=== PATIENT | female | born 1955 | race African-American/Black ===

== ENCOUNTER 2018-03-20 10:29 | Emergency (ER) | payer MEDICARE, MEDICAID ==
[~2018-03-20] VITALS: Ht 170.2 cm; Wt 54.4 kg
--- NOTE | 2018-03-20 10:40 | NUR ---
ED Nurse Note: Patient walked in c/o lower back pain x 2 weeks after lifting and twisting heavy object. Pt rates pain at 10/10. Pt is also taking Flexeril for the same complaint. Pt is A&O x4, V/S noted. Will continue to monitor the pt.
[2018-03-20 10:46] VITALS: BP 161/95
[2018-03-20] MEDS ORDERED: Ketorolac 60mg Inj IM ONE (11:00)
[2018-03-20] MEDS ORDERED: ROBAXIN-750750 MG PO (11:02)
[2018-03-20] MEDS ORDERED: TYLENOL325 MG ORAL (11:02)
--- NOTE | 2018-03-20 11:24 | NUR ---
ED Nurse Note: pt was cleared for discharge by sachin. prescription and discharge instruction explained. pt is aox 4, pt able to verbalize understanding. id band removed. pt able to walk with steady gait. pt left with all belongings.
--- NOTE | 2018-03-20 14:01 | Emergency Room Report ---
History of Present Illness General Chief Complaint: Lower Back Pain or Injury Source: Patient, Medical Record Present Illness HPI Patient reports that last week She had been lifting something cannot recall exactly what it was at that point started having some discomfort to her lower back Patient reports some discomfort into the bilateral buttock region as well patient is wearing a brace and reports that this does help her Denies any chest pain denies any loss of control of bowel or urination denies any saddle paresthesia denies any fall or trauma Patient reports that she was taking Flexeril Initially reports that the medication was given to her by her physician this last week however then reports that She was not able to see her primary physician as he was out of town the medication bottle shows Prescription initially filled in August Allergies: Coded Allergies: No Known Allergies (Unverified , 03/20/18) Patient History Past Medical History: see triage record Pertinent Family History: none Now: No : 2 Para: 1 Reviewed Nursing Documentation: PMH: Agreed; PSxH: Agreed Nursing Documentation-PMH History Of Psychiatric Problem: Yes - Anxiety Review of Systems All Other Systems: negative except mentioned in HPI Physical Exam Vital Signs Date Time Temp Pulse Resp B/P (MAP) Pulse Ox O2 Delivery O2 Flow Rate FiO2 03/20/18 10:40 97.9 77 18 161/95 95 Room Air Sp02 EP Interpretation: reviewed, normal General Appearance: well appearing, no apparent distress Head: normocephalic, atraumatic Eyes: bilateral eye PERRL, bilateral eye EOMI ENT: hearing grossly normal, normal pharynx, TMs + canals normal, uvula midline Neck: full range of motion, supple, no meningismus, no bony tend Respiratory: lungs clear, normal breath sounds, no rhonchi, no respiratory distress, no retraction, no accessory muscle use Cardiovascular #1: normal peripheral pulses, regular rate, rhythm, no edema, no gallop, no JVD, no murmur Gastrointestinal: normal bowel sounds, non tender, soft, no mass, no organomegaly, non-distended, no guarding, no hernia, no pulsatile mass, no rebound Genitourinary: no CVA tenderness Musculoskeletal: normal inspection - Patient has a cane however stands and ambulates without the cane without focal deficit had some mild discomfort on palpation paraspinal L4-L5 region no obvious step-off Neurologic: oriented x3, responsive, 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, motor strength/ tone normal, sensory intact Psychiatric: mood/affect normal Skin: normal color, no rash, warm/dry, palpation normal Lymphatic: normal inspection, no adenopathy Medical Decision Making Diagnostic Impression: Primary Impression: back pain ER Course Patient's history and clinical exam is consistent with likely back sprain/ strain other pathology such as disc herniation cannot be fully ruled out Patient however does not show clinical signs of neurological /Neurosurgical emergent pathology it was discussed that MRI via Outpatient referral will be the best approach and the patient was dispositioned for close outpatient follow-up Last Vital Signs Date Time Temp Pulse Resp B/P (MAP) Pulse Ox O2 Delivery O2 Flow Rate FiO2 03/20/18 11:22 97.9 80 18 161/90 95 Room Air 71 Status: improved Disposition: HOME, SELF-CARE Condition: Stable Scripts Methocarbamol* (ROBAXIN-750*) 750 Mg Tablet 750 MG PO TID, #21 TAB 0 Refills Prov: Néstor Andres DO 03/20/18 Acetaminophen (Tylenol) 325 Mg Tablet 650 MG ORAL Q8HR PRN for Prn Pain/Headache/Temp > 101, #15 TAB 0 Refills Prov: Néstor Andres DO 03/20/18 Referrals: NON PHYSICIAN (PCP) Kimani Malone [facility] Patient Instructions: Lumbosacral Strain Additional Instructions: Patient is provided with the discharge instructions notified to follow up with primary doctor in the next 2-3 days otherwise return to the er with any worsening symptoms. Please note that this report is being documented using Summize technology. This can lead to erroneous entry secondary to incorrect interpretation by the dictating instrument. Néstor Andres DO Mar 20, 2018 14:01
== END 2018-03-20 11:30 | disposition home or self-care (01) ==
LOC: EMR 11:02
DX: M54.5 Low back pain (principal); F41.9 Anxiety disorder, unspecified
CPT/HCPCS: 96372; 99283

== ENCOUNTER 2018-06-08 14:40 | Inpatient (IN) | payer MEDICARE, MEDICAID ==
[~2018-06-08] VITALS: Ht 170.2 cm; Wt 54.4 kg
[~2018-06-08 14:40] MED LIST: ROBAXIN-750750 MG PO; TYLENOL325 MG ORAL
[2018-06-08] MEDS ORDERED: Ketorolac 30mg Inj IM ONE (15:00)
[2018-06-08] MEDS ORDERED: Methocarbamol 750mg tab ORAL ONE (15:00)
--- NOTE | 2018-06-08 15:35 | NUR ---
ED Nurse Note: Patient resting in bed. No facial grimacing or guarding noted. Bed in lowest position.
[2018-06-08 16:01] VITALS: BP 149/83
--- NOTE | 2018-06-08 16:21 | Diagnostic Imaging Report ---
Indication: Pain x1 month, status post trip and fall Technique: Noncontrast spiral acquisitions obtained through the pelvis. Multiplanar reconstructions generated. Total dose length product 618.69 mGycm. CTDIvol(s) 10.03,8.67 mGy. Dose reduction achieved using automated exposure control Comparison: none Findings: Multiple vertebral body compression fracture deformities are discussed in separate lumbar spine CT report. The bones appear to be profoundly osteoporotic. Multiple areas of lucency are seen throughout the bilateral iliac bones and sacrum. It is unclear whether these represent areas of more profound osteoporosis or whether these represent osteolytic lesions, although are somewhat suspicious for the latter. These are particularly notable in the left supra-acetabular region and left anterior iliac bone. Small focal lucencies are also seen in the bilateral femoral heads. There is a nondisplaced fracture of the anterior left iliac bone. This appears to be associated with the largest area of lucency. No other definite fractures are demonstrated. There are mild degenerative changes of the hip joints bilaterally, mostly proliferative in nature. There are also degenerative changes of the bilateral sacroiliac joints. Soft tissues appear diffusely edematous. There is mild distention of the rectum by feces. The bladder is distended Impression: Positive for unusual nondisplaced left anterior iliac bone fracture. Profound bony demineralization. More focal lucencies as well as generalized heterogeneity to the bones could be just related to osteoporotic change, but raise concern for systemic pathologic process, either metabolic or neoplastic. Correlate with clinical history and findings. Degenerative changes, as described Diffuse edema of the soft tissues Mild distention of the rectum by feces, could indicate mild rectal fecal impaction. Distended bladder The CT scanner at [facility] is accredited by the [employer] and the scans are performed using protocols designed to limit radiation exposure to as low as reasonably achievable to attain images of sufficient resolution adequate for diagnostic evaluation.
--- NOTE | 2018-06-08 16:30 | Diagnostic Imaging Report ---
Indications: Back pain for one month, history of trip and fall Technique: Spiral acquisitions obtained through the lumbar spine. Multiplanar reconstructions were generated. No IV contrast utilized. Total dose length product 618.69 mGycm. CTDIvol(s) 10.03,8.67 mGy. Dose reduction achieved using automated exposure control Comparison: none Findings: There is a vertebra plana type burst/compression fracture deformity of the L5 vertebral body, slight posterior retropulsion, with approximately 60% height loss anteriorly and 80% height loss centrally. There is a wedge/vertebra plana compression fracture deformity of the L4 vertebral body, without evidence of posterior retropulsion. This results in approximately 50% loss anteriorly. There is an anterior wedge compression fracture deformity of the L3 vertebral body, with associated height loss of the central endplate, approximately 50% height loss anteriorly. There is slight retropulsion of the superior posterior wall. There is a mild anterior wedge compression fracture deformity of the L1 vertebral body. The remaining vertebral bodies demonstrate so-called fish deformity, with marked inward bowing of the inferior and superior endplates. The bones are profoundly osteoporotic. No other acute fractures are demonstrated. At L2-3, there is mild circumferential annular bulge. The disc bulge as well as the posterior superior wall L3 retropulsion results in mild narrowing of the spinal canal. The neural foramina are preserved. The disc space is preserved. At L3-4, there is mild circumferential annular bulge. This, in combination with ligamentum flavum hypertrophy and facet hypertrophy, results in borderline narrowing of the spinal canal. No significant neural foraminal stenosis is demonstrated. The disc space is preserved. At L4-5, there is vacuum disc formation but no significant loss of disc space. There is circumferential annular bulge. This results in borderline narrowing of the spinal canal. The neural foramina are preserved bilaterally. At L5-S1, there is vacuum disc formation without significant loss of disc space. No significant disc bulge or protrusion. There is borderline narrowing of the left neural foramen The included extra spinal soft tissues are remarkable for the presence of consolidation or atelectasis at the right lung base and a pleural effusion at the left lung base. Impression: Multiple vertebral compression fracture deformities. Age of these is indeterminate. Consider MRI to better characterize if clinically indicated No other acute bony trauma demonstrated Multilevel degenerative changes, as detailed on a level by level basis above Profound osteoporosis. Right lower lobe pulmonary parenchymal consolidation or atelectasis. Correlate with clinical history and findings Small left pleural effusion The CT scanner at [facility] is accredited by the [employer] and the scans are performed using protocols designed to limit radiation exposure to as low as reasonably achievable to attain images of sufficient resolution adequate for diagnostic evaluation.
[2018-06-08] MEDS ORDERED: IBUPROFEN600 MG ORAL (17:56)
[2018-06-08] MEDS ORDERED: ALPRAZOLAM1 MG ORAL (17:56)
--- NOTE | 2018-06-08 18:07 | NUR ---
ED Nurse Note:blood sent to labs, given iv meds
[2018-06-08] MEDS: LORazepam Inj 2mg/ml 1ml IV ONE ×2 (18:08→18:12)
[2018-06-08 18:11] LABS: BASOPHILS % (AUTO) 1.2 % (0.0-2.0); HEMATOCRIT 29.6 % (37.0-47.0); HEMOGLOBIN 9.6 G/DL (12.0-16.0); LYMPHOCYTES % (AUTO) 38.6 % (20.0-45.0); MEAN CORPUSCULAR VOLUME 96 FL (80-99); MONOCYTES % (AUTO) 7.1 % (1.0-10.0); NEUTROPHILS % (AUTO) 50.2 % (45.0-75.0); PLATELET COUNT 198 K/UL (150-450); RED BLOOD COUNT 3.07 M/UL (4.20-5.40); WHITE BLOOD COUNT 5.5 K/UL (4.8-10.8)
[2018-06-08 18:15] VITALS: BP 146/70
--- NOTE | 2018-06-08 18:18 | NUR ---
ED Nurse Note:pt. refused IV ativan
[2018-06-08 18:22] LABS: INR 1.1 (0.9-1.1)
[2018-06-08 18:36] LABS: ANION GAP 9 mmol/L (5-15); BLOOD UREA NITROGEN 12 mg/dL (7-18); CALCIUM 9.2 MG/DL (8.5-10.1); CARBON DIOXIDE 31 MMOL/L (21-32); CHLORIDE 100 MMOL/L (98-107); POTASSIUM 3.6 MMOL/L (3.5-5.1); SODIUM 140 MMOL/L (136-145)
[2018-06-08 18:41] LABS: ALANINE AMINOTRANSFERASE 17 U/L (12-78); ALBUMIN 2.4 G/DL (3.4-5.0); ALBUMIN/GLOBULIN RATIO 0.3 (1.0-2.7); ALKALINE PHOSPHATASE 84 U/L (46-116); ASPARTATE AMINO TRANSFERASE 21 U/L (15-37); BILIRUBIN,TOTAL 0.2 MG/DL (0.2-1.0)
--- NOTE | 2018-06-08 19:08 | Emergency Room Report ---
History of Present Illness General Chief Complaint: Lower Back Pain or Injury Source: Patient (Essie Post) Present Illness HPI 63-year-old female presents to the emergency department complaining of 10 out of 10 in severity low back pain as well as right upper hip pain. Patient reports mechanical trip and fall approximately one month ago. Patient denies hitting her head or having loss of consciousness. Denies midline neck pain. She states that she has been ambulatory the whole time however her symptoms have been progressive she reports that her pain is exacerbated upon walking and standing. Denies urinary incontinence or urinary retention. Denies paresthesias of the lower extremities or saddle anesthesia. Denies fevers, chills, recent spinal procedures or hx of cancer. She denies significant Pmhx. other than depression for which she reports taking xanax BID for. (Essie Post) Allergies: Coded Allergies: No Known Allergies (Unverified , 03/20/18) Patient History Past Medical History: see triage record Past Surgical History: none Pertinent Family History: none Now: No Reviewed Nursing Documentation: PMH: Agreed; PSxH: Agreed (Essie Post) Nursing Documentation-PMH Past Medical History: No History, Except For (Essie Post) Review of Systems All Other Systems: negative except mentioned in HPI (Essie Post) Physical Exam Vital Signs Date Time Temp Pulse Resp B/P (MAP) Pulse Ox O2 Delivery O2 Flow Rate FiO2 06/08/18 14:35 98.2 69 18 149/83 98 Room Air Sp02 EP Interpretation: reviewed, normal General Appearance: alert, GCS 15, non-toxic, mild distress Head: normocephalic, atraumatic Eyes: bilateral eye normal inspection, bilateral eye PERRL ENT: hearing grossly normal, normal voice Neck: full range of motion, no bony tend Respiratory: lungs clear, normal breath sounds, speaking full sentences Cardiovascular #1: regular rate, rhythm, no edema, normal capillary refill Cardiovascular #2: 2+ dorsalis pedis (R) - posterior tibial, 2+ dorsalis pedis (L) - posterior tibial Genitourinary: normal inspection, no CVA tenderness Musculoskeletal: back normal, gait/station normal - compensatory , normal range of motion, other - pt. has clinically observed kyphosis, tender - TTP across lumbar area both paraspinal and midline spinal ttp, no obvious step-offs Neurologic: alert, oriented x3, responsive, motor strength/tone normal, sensory intact, normal gait, speech normal, grossly normal Psychiatric: judgement/insight normal Skin: normal color, no rash, warm/dry, well hydrated (Essie Post) Medical Decision Making PA Attestation Dr. Andres is my supervising Physician whom patient management has been discussed with. (Essie Post) Medicare Attestation I do agree with the exam and findings noted Patient's CT and imaging also reviewed Patient requires further inpatient care, ortho has been consulted as well And patient will have further inpatient care (Néstor Andres DO) Diagnostic Impression: Primary Impression: Closed pelvic fracture Qualified Codes: S32.9XXA - Fracture of unspecified parts of lumbosacral spine and pelvis, initial encounter for closed fracture Additional Impression: Compression fx, lumbar spine Qualified Codes: S32.030A - Wedge compression fracture of third lumbar vertebra, initial encounter for closed fracture ER Course 63-year-old female presents to the emergency department complaining of 10 out of 10 in severity low back pain as well as right upper hip pain. Patient reports mechanical trip and fall approximately one month ago. Patient denies hitting her head or having loss of consciousness. Denies midline neck pain. She states that she has been ambulatory the whole time however her symptoms have been progressive she reports that her pain is exacerbated upon walking and standing. Denies urinary incontinence or urinary retention. Denies paresthesias of the lower extremities or saddle anesthesia. Denies fevers, chills, recent spinal procedures or hx of cancer. She denies significant Pmhx. other than depression for which she reports taking xanax BID for. Ddx considered: epidural abscess, fracture, sprain/strain, meningitis, spinal chord injury, sciatica, cauda equina, Pyelonephritis, renal calculi just to name a few. Vital signs reviewed and are WNL during ED visit. Pt. is afebrile with no signs of infection No saddle anesthesia noted, Pt. denies incontinence Neurovascular is intact *Tenderness to palpation to paraspinal muscles of the lower back with midline tenderness. and posterior pelvis TTP right >left. *Pt. describes pain today as moderate and radiates across the lower back and down the right leg. ORDERS: -CBC: anemia -CMP: Unremarkable -CT L-spine and Pelvis no contrast. INTERVENTIONS: - 20mg IM Toradol -Tramadol PO -Xanax 1mg IV DISPOSITION: at this time pt. will be admitted to Dr. Mcguire for multiple compression fractures on indeterminant age, and acute non-displaced anterior iliac spine fx of the left side of the pelvis. Dr. Tejada agreed to admit the pt. and to continue pt. care management. Labs Test 06/08/18 18:00 White Blood Count 5.5 K/UL (4.8-10.8) Red Blood Count 3.07 M/UL (4.20-5.40) Hemoglobin 9.6 G/DL (12.0-16.0) Hematocrit 29.6 % (37.0-47.0) Mean Corpuscular Volume 96 FL (80-99) Mean Corpuscular Hemoglobin 31.1 PG (27.0-31.0) Mean Corpuscular Hemoglobin Concent 32.3 G/DL (32.0-36.0) Red Cell Distribution Width 15.0 % (11.6-14.8) Platelet Count 198 K/UL (150-450) Mean Platelet Volume 5.8 FL (6.5-10.1) Neutrophils (%) (Auto) 50.2 % (45.0-75.0) Lymphocytes (%) (Auto) 38.6 % (20.0-45.0) Monocytes (%) (Auto) 7.1 % (1.0-10.0) Eosinophils (%) (Auto) 3.0 % (0.0-3.0) Basophils (%) (Auto) 1.2 % (0.0-2.0) Prothrombin Time 11.1 SEC (9.30-11.50) Prothromb Time International Ratio 1.1 (0.9-1.1) Activated Partial Thromboplast Time 43 SEC (23-33) Sodium Level 140 MMOL/L (136-145) Potassium Level 3.6 MMOL/L (3.5-5.1) Chloride Level 100 MMOL/L (98-107) Carbon Dioxide Level 31 MMOL/L (21-32) Anion Gap 9 mmol/L (5-15) Blood Urea Nitrogen 12 mg/dL (7-18) Creatinine 1.0 MG/DL (0.55-1.30) Estimat Glomerular Filtration Rate > 60 mL/min (>60) Glucose Level 98 MG/DL (74-106) Calcium Level 9.2 MG/DL (8.5-10.1) Total Bilirubin 0.2 MG/DL (0.2-1.0) Aspartate Amino Transf (AST/SGOT) 21 U/L (15-37) Alanine Aminotransferase (ALT/SGPT) 17 U/L (12-78) Alkaline Phosphatase 84 U/L (46-116) Total Protein 10.2 G/DL (6.4-8.2) Albumin 2.4 G/DL (3.4-5.0) Globulin 7.8 g/dL Albumin/Globulin Ratio 0.3 (1.0-2.7) (Essie Post) CT/MRI/US Diagnostic Results CT/MRI/US Diagnostic Results : Imaging Test Ordered: CT L-Spine and Pelvis Impression "Lumbar compression fractures most notably burst compression fracture of L5, anterior wedge compression fracture fracture of L3 and mild anterior wedge compression fracture of L1. Pelvic imaging was notable for an unusual fracture of the left anterior iliac spine." ---Per official radiology report- Please see report for specific details. (Essie Post) Last Vital Signs Date Time Temp Pulse Resp B/P (MAP) Pulse Ox O2 Delivery O2 Flow Rate FiO2 06/08/18 18:15 98.3 68 16 146/70 94 Room Air Status: improved (Essie Post) Disposition: ADMITTED INPATIENT Condition: Serious Referrals: NON PHYSICIAN (PCP) Essie Post Jun 08, 2018 19:08 Néstor Andres DO Jun 08, 2018 19:31
--- NOTE | 2018-06-08 19:30 | NUR ---
ED Nurse Note: RECIEVED REPORT TO RESUME CARE, PT IN BED WAITING TO GO TO FLOOR UNIT FOR ADMISSION, PT IS AWAKE, ALERT AND ORIENTED X 4, IV SITE PATENT, PT REMAINS WITH BACK PAIN AT 09/08, MD INFORMED, WILL RESUME CARE, CALL REPORT AND SEND TO FLOOR BED FOR PT ADMISSION.
--- NOTE | 2018-06-08 20:20 | NUR ---
ED Nurse Note: REPORT FLEX TO JEREMYRN ON FLOOR UNIT FOR PT ADMIT, PT BEING TAKEN TO FLOOR BED VIA GURNEY AND ER-TECH, PT HAS ALL BELONGINGS, SALINE LCOK INTACT AND PATENT, NAD NOTED DURING PT TRANSFER TO [facility] FOR ADMISSION.
[2018-06-08] MEDS ORDERED: Gadavist 7.5mMol/7.5ml vial IV PRN (20:30)
[2018-06-08] MEDS: HYDROcodone/Acetamin 5/325 tab ORAL PRN (22:18)
--- NOTE | 2018-06-08 22:45 | NUR ---
NURSE NOTES: RECEIVED PT FROM ED VIA GURELIE, ADM DX OF MULTIPLE COMPRESSION FX AND PELVIC FX, UNDER DR CARTER. REPORT RECEIVED FROM BACTERIOLOGIST FOOD JENY. A/O X 4, RA, NO SOB, NO ACUTE DISTRESS. LAC 20G SALINE LOCK INTACT, PATENT. BELONGINGS CHECKED, ORIENTED PT TO SURROUNDINGS. BED IN LOWEST POSITION, LOCKED, ALARMS ON. CALL LIGHT IN REACH. WILL RECEIVED ADM ORDERS FROM DR CARTER.
[2018-06-09] VITALS: BP 144/72
--- NOTE | 2018-06-09 02:15 | Consultation ---
DATE OF CONSULTATION: 06/08/2018 ORTHOPEDIC CONSULTATION CONSULTING PHYSICIAN: Scout Kwok M.D. REQUESTING PHYSICIAN: Néstor Marrero M.D. CHIEF COMPLAINT: Left hip pain and low back pain. HISTORY OF PRESENT ILLNESS: The patient is a 63-year-old female with no reported medical history who was lifting a plant and she kind of felt popping and cracking sensation in the lower back. She subsequently had significant pain in her left hip radiating down to left thigh, subsequently was brought to the ER. Imaging studies, which showed possible multiple compression fractures as well as fractures along the left iliac wing. The patient denies any constitutional symptoms. No fevers or weight loss. No history of any cancer. PAST MEDICAL HISTORY: Reviewed per intake chart. PAST SURGICAL HISTORY: Reviewed per intake chart. MEDICATIONS: Reviewed per intake chart. PHYSICAL EXAMINATION: GENERAL: The patient is alert and oriented. He is resting comfortably on the bed. VITAL SIGNS: Afebrile. Stable vital signs. EXTREMITIES: Left hip examination shows some pain along the iliac crest. No pain with log rolling of the left hip. Neurovascular exam is normal. There is some tenderness to palpation of the lumbar spine. LABORATORY AND DIAGNOSTIC DATA: CT scan lumbar spine shows multilevel vertebral body fractures, no significant disc desiccation, L4-L5 and L5-S1. CT scan of the pelvis shows a fracture through the left iliac crest. ASSESSMENT: Multilevel lumbar compression fractures left iliac crest DISCUSSION: At this point, clearly she needs workup. She has got a lucency on the right iliac wing as well. I think that she needs appropriate workup for possible multiple myeloma, possible metastatic cancer. I recommend getting an MRI of the lumbar spine to better evaluate the chronicity of the lumbar spine issues. Based on the MRI findings, further recommendations can be made. In terms left pelvic ring fracture, this is a stable injures to iliac wing. She can be weightbearing as tolerated. I recommend maintaining sometime DVT prophylaxis until we can confirm that she does not have some type of underlying metastatic issues. Scout Kwok M.D. DR: Matty JOB#: [id number] CC: Néstor Marrero M.D.; Fax#: [phone] [facility]
[2018-06-09 04:00] VITALS: BP 147/76
[2018-06-09] MEDS: HYDROcodone/Acetamin 5/325 tab ORAL PRN ×3 (04:52→16:07)
[2018-06-09 05:38] LABS: HEMATOCRIT 24.3 % (37.0-47.0); HEMOGLOBIN 7.9 G/DL (12.0-16.0); MEAN CORPUSCULAR VOLUME 97 FL (80-99); PLATELET COUNT 200 K/UL (150-450); RED CELL DISTRIBUTION WIDTH 15.4 % (11.6-14.8); WHITE BLOOD COUNT 4.1 K/UL (4.8-10.8)
--- NOTE | 2018-06-09 06:09 | NUR ---
NURSE NOTES: PT NOTED WITH HGB 7.9 AND WBC 4.1, LEFT MSG TO DR CARTER.
--- NOTE | 2018-06-09 06:30 | NUR ---
NURSE NOTES: PT NOTED WITH LOW SATS AT 85% RA, DENIES SOB, ASYMPTOMATIC. INFORMED DR CARTER, RECEIVED ORDER FOR OS 2L VIZ N/C. CARRIED OUT. SATS NOTED 96% WITH 2L O2.
--- NOTE | 2018-06-09 06:35 | NUR ---
NURSE NOTES: RECEIVED ORDER TO TRANSFUSE 1PRBC FROM DR LOYOLA. CARRIED OUT.
[2018-06-09 06:40] LABS: ALANINE AMINOTRANSFERASE 17 U/L (12-78); ALBUMIN 2.2 G/DL (3.4-5.0); ALBUMIN/GLOBULIN RATIO 0.3 (1.0-2.7); ALKALINE PHOSPHATASE 75 U/L (46-116); ANION GAP 9 mmol/L (5-15); ASPARTATE AMINO TRANSFERASE 22 U/L (15-37); BILIRUBIN,TOTAL 0.2 MG/DL (0.2-1.0); BLOOD UREA NITROGEN 15 mg/dL (7-18); CALCIUM 8.6 MG/DL (8.5-10.1); CARBON DIOXIDE 29 MMOL/L (21-32); CHLORIDE 101 MMOL/L (98-107); CREATININE 0.9 MG/DL (0.55-1.30); POTASSIUM 3.7 MMOL/L (3.5-5.1); SODIUM 139 MMOL/L (136-145)
--- NOTE | 2018-06-09 06:56 | NUR ---
NURSE NOTES: LEFT MSG TO DR MAZA REGARDING SATS.
--- NOTE | 2018-06-09 07:15 | NUR ---
NURSE NOTES: Patient is in bed awake and able to verbalize needs. Patient is stable and denies pain or SOB. Patient encouraged to use call light for assistance, verbalized understanding. On oxygen 2L via NC, breathing is even and unlabored. Skin is clean, dry, and intact. Patient is in good spirits with call light within reach. All safety measures provided. Will continue to monitor.
--- NOTE | 2018-06-09 07:40 | NUR ---
HAND-OFF: Report given to Kimberly DILL.
[2018-06-09 08:00] VITALS: BP 154/84
--- NOTE | 2018-06-09 08:11 | NUR ---
NURSE NOTES: Spoke to blood bank, type and cross is in process. Will continue to monitor.
--- NOTE | 2018-06-09 08:59 | Consultation ---
History of Present Illness General Date patient seen: Jun 09, 2018 Present Illness Allergies: Coded Allergies: No Known Allergies (Unverified , 03/20/18) Medication History Scheduled Alprazolam* (Xanax*), 1 MG ORAL BID, (Reported) Methocarbamol* (Robaxin-750*), 750 MG PO TID Miscellaneous Medications Ibuprofen* (Motrin*), Unknown Dose ORAL, (Reported) Discontinued Medications Acetaminophen (Tylenol), 650 MG ORAL Q8HR PRN for Prn Pain/Headache/Temp > 101 Discontinued Reason: Therapy completed Patient History Healthcare decision maker Resuscitation status Full Code Advanced Directive on File Physical Exam Last 24 Hour Vital Signs Date Time Temp Pulse Resp B/P (MAP) Pulse Ox O2 Delivery O2 Flow Rate FiO2 06/09/18 08:24 Nasal Cannula 2.0 06/09/18 08:00 98.2 61 19 154/84 (107) 99 06/09/18 04:00 97.5 60 18 147/76 (99) 99 06/09/18 00:00 97.2 67 18 144/72 (96) 94 06/08/18 22:00 Room Air 06/08/18 20:21 98.3 68 16 146/70 94 Room Air 06/08/18 18:15 98.3 68 16 146/70 94 Room Air 06/08/18 16:01 98.2 79 18 149/83 98 Room Air 06/08/18 15:35 98.2 06/08/18 14:35 98.2 69 18 149/83 98 Room Air Intake and Output 06/08/18 06/09/18 19:00 07:00 Intake Total 120 ml 440 ml Balance 120 ml 440 ml Intake Oral 120 ml IV Total 440 ml Laboratory Tests Test 06/08/18 18:00 06/09/18 04:59 White Blood Count 5.5 K/UL (4.8-10.8) 4.1 K/UL (4.8-10.8) L Red Blood Count 3.07 M/UL (4.20-5.40) L 2.50 M/UL (4.20-5.40) L Hemoglobin 9.6 G/DL (12.0-16.0) L 7.9 G/DL (12.0-16.0) L Hematocrit 29.6 % (37.0-47.0) L 24.3 % (37.0-47.0) L Mean Corpuscular Volume 96 FL (80-99) 97 FL (80-99) Mean Corpuscular Hemoglobin 31.1 PG (27.0-31.0) H 31.6 PG (27.0-31.0) H Mean Corpuscular Hemoglobin Concent 32.3 G/DL (32.0-36.0) 32.6 G/DL (32.0-36.0) Red Cell Distribution Width 15.0 % (11.6-14.8) H 15.4 % (11.6-14.8) H Platelet Count 198 K/UL (150-450) 200 K/UL (150-450) Mean Platelet Volume 5.8 FL (6.5-10.1) L 6.6 FL (6.5-10.1) Neutrophils (%) (Auto) 50.2 % (45.0-75.0) % (45.0-75.0) Lymphocytes (%) (Auto) 38.6 % (20.0-45.0) % (20.0-45.0) Monocytes (%) (Auto) 7.1 % (1.0-10.0) % (1.0-10.0) Eosinophils (%) (Auto) 3.0 % (0.0-3.0) % (0.0-3.0) Basophils (%) (Auto) 1.2 % (0.0-2.0) % (0.0-2.0) Prothrombin Time 11.1 SEC (9.30-11.50) Prothromb Time International Ratio 1.1 (0.9-1.1) Activated Partial Thromboplast Time 43 SEC (23-33) H Sodium Level 140 MMOL/L (136-145) 139 MMOL/L (136-145) Potassium Level 3.6 MMOL/L (3.5-5.1) 3.7 MMOL/L (3.5-5.1) Chloride Level 100 MMOL/L (98-107) 101 MMOL/L (98-107) Carbon Dioxide Level 31 MMOL/L (21-32) 29 MMOL/L (21-32) Anion Gap 9 mmol/L (5-15) 9 mmol/L (5-15) Blood Urea Nitrogen 12 mg/dL (7-18) 15 mg/dL (7-18) Creatinine 1.0 MG/DL (0.55-1.30) 0.9 MG/DL (0.55-1.30) Estimat Glomerular Filtration Rate > 60 mL/min (>60) > 60 mL/min (>60) Glucose Level 98 MG/DL (74-106) 77 MG/DL (74-106) Calcium Level 9.2 MG/DL (8.5-10.1) 8.6 MG/DL (8.5-10.1) Total Bilirubin 0.2 MG/DL (0.2-1.0) 0.2 MG/DL (0.2-1.0) Aspartate Amino Transf (AST/SGOT) 21 U/L (15-37) 22 U/L (15-37) Alanine Aminotransferase (ALT/SGPT) 17 U/L (12-78) 17 U/L (12-78) Alkaline Phosphatase 84 U/L (46-116) 75 U/L (46-116) Total Protein 10.2 G/DL (6.4-8.2) H 9.4 G/DL (6.4-8.2) H Albumin 2.4 G/DL (3.4-5.0) L 2.2 G/DL (3.4-5.0) L Globulin 7.8 g/dL 7.2 g/dL Albumin/Globulin Ratio 0.3 (1.0-2.7) L 0.3 (1.0-2.7) L Differential Total Cells Counted 100 Neutrophils % (Manual) 45 % (45-75) Lymphocytes % (Manual) 42 % (20-45) Monocytes % (Manual) 10 % (1-10) Eosinophils % (Manual) 3 % (0-3) Basophils % (Manual) 0 % (0-2) Band Neutrophils 0 % (0-8) Platelet Estimate Adequate Platelet Morphology Normal Anisocytosis 1+ Total Protein (PEP) Pending Albumin (PEP) Pending Globulin (PEP) Pending Ondjf-3-Pyphmbkxf Pending Njmzw-5-Umdlmchwz Pending Beta Globulins Pending Beta Gamma Globulin Pending PEP Abnormal Protein Bands Pending Protein Electrophoresis Interpret Pending Carcinoembryonic Antigen Pending CA 15-3 Antigen Pending CA 19-9 Antigen Pending CA 125 Antigen Pending Immunoglobulin G Pending Immunoglobulin A Pending Immunoglobulin M Pending Height (Feet): 5 Height (Inches): 7.00 Weight (Pounds): 120 Medications Current Medications Medications (Trade) Dose Ordered Sig/Travis Route PRN Reason Start Time Stop Time Status Last Admin Dose Admin Acetaminophen (Tylenol) 650 mg Q4H PRN ORAL Mild Pain/Temp > 100.5 06/08/18 21:15 07/08/18 21:14 Acetaminophen/ Hydrocodone Bitart ([place] 5/325) 1 tab Q4H PRN ORAL Severe Pain 06/08/18 21:15 06/15/18 21:14 06/09/18 04:52 Sodium Chloride 1,000 ml @ 55 mls/hr [id number] IV 06/08/18 22:00 07/08/18 21:59 06/08/18 22:06 Assessment/Plan Assessment/Plan (1) Lumbar Radiculopathy (2) Multilevel lumbar compression fx (3) Pelvic pain (4) Left iliac crest fx seen dictated Nils Bledsoe Jun 09, 2018 08:59
--- NOTE | 2018-06-09 10:15 | NUR ---
NURSE NOTES: Received blood from blood bank. Patient is stable. Blood pressure elevated, 174/89, pulse 72. Patient is stable, asymptomatic, denies chest pain or SOB. Rechecked after 5 minutes, BP: 165/80 pulse 63. WIll continue to monitor.
--- NOTE | 2018-06-09 10:20 | NUR ---
Pt refusing MRI, even with sedation. 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 tjb 10:20
--- NOTE | 2018-06-09 10:40 | NUR ---
NURSE NOTES: Patient's blood pressure continues to be elevated, patient refused blood transfusion. Returned blood to blood bank.
--- NOTE | 2018-06-09 11:33 | NUR ---
CASE MANAGEMENT:REVIEW 63 YR OLD FEMALE BIBA FROM HOME CC: BACK PAIN X1 MONTH. TRIPPED AND FELL A MONTH AGO SI: CLOSED PELVIC FRACTURE LUMBAR SPINE COMPRESSION FRACTURE 98.2 69 18 149/83 98% ON RA H/H-9.6/29.6--> 7.9/24.3 IS: IV TORADOL IV ATIVAN X1 ROBAXIN PO CT PELVIS/SPINE : TO MED/SURG 3 EAST PLAN: ORTHO CONSULT TRANSFUSE 1 UNIT PRBC'S INTERQUAL CRITERIA MET
--- NOTE | 2018-06-09 11:41 | NUR ---
NURSE NOTES: Patient refused blood transfusion and MRI. Patient aware of all risks and benefits of both procedures. Dr. Freed aware, patient is stable. will continue to monitor.
[2018-06-09 12:00] VITALS: BP 156/47
--- NOTE | 2018-06-09 14:58 | Consultation ---
Consult Note Consult Note asked to eval at the request of Dr sierra HPI 63-year-old female presents to the emergency department complaining of 10 out of 10 in severity low back pain as well as right upper hip pain. Patient reports mechanical trip and fall approximately one month ago. Patient denies hitting her head or having loss of consciousness. She states that she has been ambulatory the whole time however her symptoms have been progressive she reports that her pain is exacerbated upon walking and standing. Denies urinary incontinence or urinary retention. Denies paresthesias of the lower extremities or saddle anesthesia. Denies significant Pmhx. other than depression for which she reports taking xanax BID for. No Known Allergies (Unverified , 03/20/18) Past Medical History: No History, interviewed examined data reviewed Assessment/Plan Anemia, suspected MM corrected for hypoalbuminemia, patient has hypercalcemia mild HTN Multiple vertebral compression fracture Profound osteoporosis. Right lower lobe pulmonary parenchymal consolidation or atelectasis. nondisplaced left anterior iliac bone fracture. urinary outlet obstruction fecal impaction Monroe Colace anemia kim per ortho / Onco.... procardia for HTN SQ Heparin Patrick Marino MD Jun 09, 2018 14:58
--- NOTE | 2018-06-09 15:38 | NUR ---
RADIOLOGY DEPT., BONE SURVEY COMPLETED .- P.DYE
[2018-06-09 16:00] VITALS: BP 162/80
[2018-06-09] MEDS ORDERED: Docusate 100mg cap ORAL SCH (16:00)
--- NOTE | 2018-06-09 16:00 | NUR ---
NURSE NOTES: Inserted martinez catheter as ordered, tolerated well. Denies pain or burning. Patient is stable. Will continue to monitor.
--- NOTE | 2018-06-09 16:17 | Diagnostic Imaging Report ---
Indication: Skeletal pain, abnormal bones demonstrated on previous cross-sectional imaging studies Technique: Limited views of the axial and appendicular skeleton Comparison: None. Reference made to lumbar and pelvis CT scans 06/08/2018 Findings: The bones are profoundly osteoporotic. The skull demonstrates multiple small focal lucencies, all measuring under 1 cm in diameter and most measuring under 5 mm. Discrete small lucencies are seen in the bilateral femurs, predominantly proximally, within the acetabular and pubic regions of the pelvis and questionably within the bilateral scapulae. Discrete lesions are not definitely demonstrated in the spine, ribs, humeri, forearms, or distal lower extremities. There is an old healed fracture of the right sixth rib. There are degenerative changes of the lower cervical spine. Multiple mid and lower thoracic compression fractures are demonstrated, not well visualized due to the very low density of the bones. Multiple lumbar compression fractures are detailed on separate lumbar spine CT report. Impression: Profound osteoporosis. Multiple small subcentimeter lucencies within the pelvis, skull, and bilateral proximal femurs are concerning with bony involvement with process such as multiple myeloma. Other findings as noted
--- NOTE | 2018-06-09 16:58 | Consultation ---
History of Present Illness General Chief Complaint: Lower Back Pain or Injury Present Illness Allergies: Coded Allergies: No Known Allergies (Unverified , 03/20/18) Medication History Scheduled Alprazolam* (Xanax*), 1 MG ORAL BID, (Reported) Methocarbamol* (Robaxin-750*), 750 MG PO TID Miscellaneous Medications Ibuprofen* (Motrin*), Unknown Dose ORAL, (Reported) Discontinued Medications Acetaminophen (Tylenol), 650 MG ORAL Q8HR PRN for Prn Pain/Headache/Temp > 101 Discontinued Reason: Therapy completed Patient History Healthcare decision maker Resuscitation status Full Code Advanced Directive on File Physical Exam Last 24 Hour Vital Signs Date Time Temp Pulse Resp B/P (MAP) Pulse Ox O2 Delivery O2 Flow Rate FiO2 06/09/18 16:06 61 162/80 06/09/18 12:00 98.6 56 18 156/47 (83) 98 06/09/18 08:24 Nasal Cannula 2.0 06/09/18 08:00 98.2 61 19 154/84 (107) 99 06/09/18 04:00 97.5 60 18 147/76 (99) 99 06/09/18 00:00 97.2 67 18 144/72 (96) 94 06/08/18 22:00 Room Air 06/08/18 20:21 98.3 68 16 146/70 94 Room Air 06/08/18 18:15 98.3 68 16 146/70 94 Room Air Intake and Output 06/08/18 06/09/18 19:00 07:00 Intake Total 120 ml 440 ml Balance 120 ml 440 ml Intake Oral 120 ml IV Total 440 ml Laboratory Tests Test 06/08/18 18:00 06/09/18 04:59 06/09/18 11:11 White Blood Count 5.5 K/UL (4.8-10.8) 4.1 K/UL (4.8-10.8) L Red Blood Count 3.07 M/UL (4.20-5.40) L 2.50 M/UL (4.20-5.40) L Hemoglobin 9.6 G/DL (12.0-16.0) L 7.9 G/DL (12.0-16.0) L Hematocrit 29.6 % (37.0-47.0) L 24.3 % (37.0-47.0) L Mean Corpuscular Volume 96 FL (80-99) 97 FL (80-99) Mean Corpuscular Hemoglobin 31.1 PG (27.0-31.0) H 31.6 PG (27.0-31.0) H Mean Corpuscular Hemoglobin Concent 32.3 G/DL (32.0-36.0) 32.6 G/DL (32.0-36.0) Red Cell Distribution Width 15.0 % (11.6-14.8) H 15.4 % (11.6-14.8) H Platelet Count 198 K/UL (150-450) 200 K/UL (150-450) Mean Platelet Volume 5.8 FL (6.5-10.1) L 6.6 FL (6.5-10.1) Neutrophils (%) (Auto) 50.2 % (45.0-75.0) % (45.0-75.0) Lymphocytes (%) (Auto) 38.6 % (20.0-45.0) % (20.0-45.0) Monocytes (%) (Auto) 7.1 % (1.0-10.0) % (1.0-10.0) Eosinophils (%) (Auto) 3.0 % (0.0-3.0) % (0.0-3.0) Basophils (%) (Auto) 1.2 % (0.0-2.0) % (0.0-2.0) Prothrombin Time 11.1 SEC (9.30-11.50) Prothromb Time International Ratio 1.1 (0.9-1.1) Activated Partial Thromboplast Time 43 SEC (23-33) H Sodium Level 140 MMOL/L (136-145) 139 MMOL/L (136-145) Potassium Level 3.6 MMOL/L (3.5-5.1) 3.7 MMOL/L (3.5-5.1) Chloride Level 100 MMOL/L (98-107) 101 MMOL/L (98-107) Carbon Dioxide Level 31 MMOL/L (21-32) 29 MMOL/L (21-32) Anion Gap 9 mmol/L (5-15) 9 mmol/L (5-15) Blood Urea Nitrogen 12 mg/dL (7-18) 15 mg/dL (7-18) Creatinine 1.0 MG/DL (0.55-1.30) 0.9 MG/DL (0.55-1.30) Estimat Glomerular Filtration Rate > 60 mL/min (>60) > 60 mL/min (>60) Glucose Level 98 MG/DL (74-106) 77 MG/DL (74-106) Calcium Level 9.2 MG/DL (8.5-10.1) 8.6 MG/DL (8.5-10.1) Total Bilirubin 0.2 MG/DL (0.2-1.0) 0.2 MG/DL (0.2-1.0) Aspartate Amino Transf (AST/SGOT) 21 U/L (15-37) 22 U/L (15-37) Alanine Aminotransferase (ALT/SGPT) 17 U/L (12-78) 17 U/L (12-78) Alkaline Phosphatase 84 U/L (46-116) 75 U/L (46-116) Total Protein 10.2 G/DL (6.4-8.2) H 9.4 G/DL (6.4-8.2) H Albumin 2.4 G/DL (3.4-5.0) L 2.2 G/DL (3.4-5.0) L Globulin 7.8 g/dL 7.2 g/dL Albumin/Globulin Ratio 0.3 (1.0-2.7) L 0.3 (1.0-2.7) L Differential Total Cells Counted 100 Neutrophils % (Manual) 45 % (45-75) Lymphocytes % (Manual) 42 % (20-45) Monocytes % (Manual) 10 % (1-10) Eosinophils % (Manual) 3 % (0-3) Basophils % (Manual) 0 % (0-2) Band Neutrophils 0 % (0-8) Platelet Estimate Adequate Platelet Morphology Normal Anisocytosis 1+ Total Protein (PEP) Pending Albumin (PEP) Pending Globulin (PEP) Pending Kqwhi-4-Chbxpckcb Pending Uwifb-1-Gdryzvnks Pending Beta Globulins Pending Beta Gamma Globulin Pending PEP Abnormal Protein Bands Pending Protein Electrophoresis Interpret Pending Carcinoembryonic Antigen Pending CA 15-3 Antigen Pending CA 19-9 Antigen Pending CA 125 Antigen Pending Immunoglobulin G Pending Immunoglobulin A Pending Immunoglobulin M Pending Urine Total Protein Pending Urine Albumin (%) Pending Urine Cpygj-8-Ghzcxsofj (%) Pending Urine Avmhf-6-Ywskrbyuk (%) Pending Urine Beta-Globulin (%) Pending Urine Gamma Globulin (%) Pending Ur Protein Electrophoresis M-Olaf Pending Urine Protein Electrophoresis Intrp Pending Height (Feet): 5 Height (Inches): 7.00 Weight (Pounds): 120 Medications Current Medications Medications (Trade) Dose Ordered Sig/Travis Route PRN Reason Start Time Stop Time Status Last Admin Dose Admin Acetaminophen (Tylenol) 650 mg Q4H PRN ORAL Mild Pain/Temp > 100.5 06/08/18 21:15 07/08/18 21:14 Acetaminophen/ Hydrocodone Bitart ([place] 5/325) 1 tab Q4H PRN ORAL Severe Pain 06/08/18 21:15 06/15/18 21:14 06/09/18 16:07 Docusate Sodium (Colace) 100 mg ONCE ORAL 06/09/18 16:00 06/09/18 17:00 06/09/18 16:07 Docusate Sodium (Colace) 100 mg THREE TIMES A DAY ORAL 06/09/18 18:00 07/09/18 17:59 Heparin Sodium (Porcine) (Heparin 5000 units/ml) 5,000 units EVERY 8 HOURS SUBQ 06/09/18 22:00 07/09/18 21:59 Nifedipine (Procardia XL) 30 mg DAILY ORAL 06/10/18 09:00 07/10/18 08:59 Nifedipine (Procardia XL) 30 mg ONCE ORAL 06/09/18 16:00 06/09/18 17:00 06/09/18 16:06 Assessment/Plan Assessment/Plan Hematology Consultation DOS: 06/09/18 Chief Complaint: Lower Back Pain or Injury RFC: Myleoma rule out, leukopenia, anemia, iliac wing lesion Source: Patient REQ MD: Néstor Marrero 63-year-old female presents to the emergency department complaining of 10 out of 10 in severity low back pain as well as right upper hip pain. Patient reports mechanical trip and fall approximately one month ago. Patient denies hitting her head or having loss of consciousness. She states that she has been ambulatory the whole time however her symptoms have been progressive she reports that her pain is exacerbated upon walking and standing. Denies urinary incontinence or urinary retention. Denies paresthesias of the lower extremities or saddle anesthesia. Denies significant Pmhx. other than depression for which she reports taking xanax BID for. Noted to have a protein of 10, orthopedic consult was obtained and heme was consulted to rule ouT MYELOMA. Allergies: No Known Allergies (Unverified , 03/20/18) Past Medical History: see triage record Past Surgical History: none Pertinent Family History: none Now: No Reviewed Nursing Documentation: PMH: Agreed; PSxH: Agreed Past Medical History: No History, Except For ROS: Constitutional: No fever, weakness noted, no f/c Skin: No rashes, lumps, itchiness, dryness HEENT: No PATRICIA, ear ache, visual changes, double vision, nosebleeds, sore throat, lumps, swollen glands Breasts: No lumps, pain, discharge Pulmonary: No cough, sputum, shortness of breath, coughing up blood, hemoptysis Cardiovascular: No chest pain, tightness, palpitations, syncope GI: No nausea, vomiting, diarrhea, melena, hematochezia : No dysuria, frequency, urgency, urinary incontinence, foamy urine Musculoskeletal: No joint swelling or muscle pain, trauma, back pain Neurologic: No dizziness, fainting, seizures, changes in smell or taste Psychiatric: No nervousness, stress, or depression, anxiety, hallucinations Endocrine: No weight change, heat or cold intolerance, tremor, insomnia Vital Signs Date Time Temp Pulse Resp B/P (MAP) Pulse Ox O2 Delivery O2 Flow Rate FiO2 06/09/18 14:35 98.2 69 18 149/83 98 Room Air PE: Vitals: reviewed General Appearance: NAD HEENT: normocephalic, atraumatic Neck: non-tender, normal alignment Respiratory/Chest: nromal breath sounds bilaterally Cardiovascular/Chest: normal peripheral pulses, normal rate Abdomen: normal bowel sounds, soft, nontender Extremities: normal range of motion Neuro: difficult to perform given leg pain, back pain Assessment and Recs # Iliac WING lesion, plus scattered lesion on bone scan throughout her axial and appendicular skeletion concerning for MULTIPLE MYELOMA versus other neoplasm , presents with back pain, as well as compression fractures, lesions in the cranium, which is new for the patient --> Myeloma evaluation has been ordered which includes immunofixation urine and immunofixation serum, IgG, IgM, IgA, serum and protein electrophoresis as well may need a bone marrow biopsy --> Will consider a bone marrow biopsy if patient will benefit from this as it will give myeloma subtype, cytogenetics (gene mutations) which can potentially give us information in regards to prognosis --> Imaging has been reviewed, will benefit from CT c/a/p but patient has refused this procedure --> If myleoma, patients given her performance status can do very well, average lifespan >5 years with treatment # Anemia of chronic disease (or of iron deficiency) due to underlying chronic medical issues, multifactorial --> Anemia workup has been ordered, rule out gi bleed --> No evidence of hemolysis is noted, peripheral smear has been reviewed. --> Hgb goal >7. Transfuse prn. --> Epogen or iron at this time is not particularly indicated --> Medications have been reviewed --> evaluate with Gi team prn --> transfuse if hgb is < 7 (will trend CBC daily) # Leukopenia - could be related to myleoma versus stress/infection, reactive process --> hepatitis and hiv ordered --> again can benefit at some point with a bone marrow biopsy # Fractures of her back and iliac wing, burst compression fracture of L5, anterior wedge compression fracture fracture of L3 and mild anterior wedge compression fracture of L1. --> seen by ortho # Mechanical trip and fall approximately one month ago. Patient denies hitting her head or having loss of consciousness. # Anxiety, generalzed The timing of this note does not necessarily reflect the time of the patient was seen. Greatly appreciate consultation! Dmitriy Freed MD Jun 09, 2018 16:58
[2018-06-09] MEDS: Docusate 100mg cap ORAL SCH (18:08)
--- NOTE | 2018-06-09 19:30 | NUR ---
HAND-OFF: Report given to Amelia DILL. Pt stable.
--- NOTE | 2018-06-09 19:30 | NUR ---
NURSE NOTES:Patient received joy Harris RJagjit Patient A/A/OX4 . No s/s of distress noted LAC g#20 H/L Patent and intact . Monroe catheter draining to yellow urine . patient vss , afebrile . patient ambulated to bathroom with straight cane and back to bed . patient instructed to use call light when needed. patient verbalized her understanding .will continue to monitor.
[2018-06-09 20:00] VITALS: BP 132/72
[2018-06-09] MEDS: Heparin 5000 units/ml inj SUBQ SCH (22:00)
[2018-06-10] VITALS: BP 146/77
--- NOTE | 2018-06-10 01:30 | Progress Note ---
DATE: 06/09/2018 SUBJECTIVE: The patient declined to get an MRI of the lumbar spine. She otherwise is resting comfortably in bed. OBJECTIVE: Afebrile. Stable vital signs. Posterior calf is soft. ASSESSMENT: 1. Left pathologically crest fracture. 2. Multilevel lumbar compression fractures. 3. Right osteolytic lesion iliac crest. DISCUSSION: At this point, she does have a fracture of the pelvic ring, this seemed it does not require operative intervention. MRI lumbar spine shows she has multiple compression fractures. I think based on her symptomatology, I do not think these are all acute, but the only way to evaluate and confirm that is to get an MRI. More concerning is that she has multiple fractures as well as lytic lesions, which is consistent with some type of metastatic disease or possible multiple myeloma. At this point, I have discussed my findings with Dr. Marrero and instructed him to follow up with that workup. However, the patient continues to refuse further workup. If she refuses further workup, there is not much more to be done. The patient of note is alert and oriented and there is no clinical indication why she cannot make decisions for mental capacity. Scout Kwok M.D. DR: Fe JOB#: [id number] CC: CHEIKH
[2018-06-10 04:00] VITALS: BP 144/78
--- NOTE | 2018-06-10 04:30 | History and Physical Report ---
DATE OF ADMISSION: 06/08/2018 HISTORY OF PRESENT ILLNESS: The patient is admitted for left anterior iliac bone fracture. Dr. Kwok is seeing for ortho consult. Has multiple lumbar spine fractures. It looks like she has a pathological fracture due to some kind of a metastatic disease, most likely. She is admitted for multiple compression fractures and for possible pelvic fracture as well as hypoxia. The patient has been complaining of back pain and shifting back 3 weeks ago. She has pain all over. She has been also suffering from chronic pain syndrome and anxiety, admitted for a metastatic workup as well. PAST MEDICAL HISTORY: Anxiety, chronic pain syndrome, and constipation. PAST SURGICAL HISTORY: None. MEDICATIONS: Xanax Robaxin. ALLERGIES: No known allergies. SOCIAL HISTORY: History of drug abuse and history of smoking. FAMILY HISTORY: Noncontributory. REVIEW OF SYSTEMS: HEENT: Denies headaches. RESPIRATORY: Denies shortness of breath. Denies cough. CARDIOVASCULAR: Denies chest pain. Denies nausea, vomiting, or diarrhea. Reports pain all over. CENTRAL NERVOUS SYSTEM: No change in vision or speech pattern. Feels weak. PHYSICAL EXAMINATION: VITAL SIGNS: Temperature 97.5, pulse is 60, and blood pressure 147/76. HEENT: PERRLA. NECK: Supple. No lymphadenopathy. CHEST: Clear to auscultation. CARDIOVASCULAR: Regular rate and rhythm. No murmurs or extra sounds. GASTROINTESTINAL: Soft, nontender, and nondistended. No organomegaly. EXTREMITIES: No edema. Moves all four extremities. NEUROLOGIC: Sensory intact to light touch. Reflexes are equal on both sides. LABORATORY DATA: Laboratory grace WBC of 5.5, hemoglobin of 9.6, and platelets of 198,000. Sodium 140, potassium 3.6, chloride of 100, BUN of 12, creatinine of 1, and glucose of 98. ASSESSMENT AND PLAN: Hypoxia, rule out pathological bone fracture, rule out metastatic disease. The patient has pain all over. I have asked Dr. Dmitriy Freed to see the patient for the metastatic workup disease. Dr. Remy Kwok is also following the patient as well as Dr. Vu for pain management and Dr. Trinidad for hypoxia workup and Dr. Gomes for the lumbar fracture to make sure that the spine is intact and there is no neurological deficit. consulted Dr. Gomes to make sure that there is no impingement or unstable lumbar fracture. Dr. Kwok again is on the case as well. Néstor Marrero M.D. DR: PALAK JOB#: [id number] CC:
[2018-06-10] MEDS: Heparin 5000 units/ml inj SUBQ SCH (06:00)
--- NOTE | 2018-06-10 06:29 | NUR ---
NURSE NOTES: Patient refused heparin injection . explained it all the the risk and benefits to patient still refusing. call light within reach . bed in low position at all times will continue to monitor.
[2018-06-10 06:38] LABS: BASOPHILS % (AUTO) 0.8 % (0.0-2.0); HEMOGLOBIN 8.8 G/DL (12.0-16.0); LYMPHOCYTES % (AUTO) 41.2 % (20.0-45.0); MEAN CORPUSCULAR VOLUME 97 FL (80-99); MONOCYTES % (AUTO) 8.9 % (1.0-10.0); NEUTROPHILS % (AUTO) 46.1 % (45.0-75.0); PLATELET COUNT 206 K/UL (150-450); RED BLOOD COUNT 2.88 M/UL (4.20-5.40); RED CELL DISTRIBUTION WIDTH 14.9 % (11.6-14.8); WHITE BLOOD COUNT 4.9 K/UL (4.8-10.8)
[2018-06-10 06:42] LABS: INR 1.1 (0.9-1.1)
--- NOTE | 2018-06-10 07:15 | NUR ---
HAND-OFF: Report given to GOSIA Reyna
--- NOTE | 2018-06-10 07:30 | NUR ---
NURSE NOTES: Patient lying in bed awake. complain of pain 10/10 and will administer pain medication as ordered. Skin intact and dry. IV dressing intact and dry. Monroe catheter patent and draining well. Bed lowest position. Call light within reach. Will continue to monitor.
[2018-06-10 07:47] LABS: ALANINE AMINOTRANSFERASE 14 U/L (12-78); ALBUMIN 2.3 G/DL (3.4-5.0); ALBUMIN/GLOBULIN RATIO 0.3 (1.0-2.7); ALKALINE PHOSPHATASE 77 U/L (46-116); ANION GAP 11 mmol/L (5-15); ASPARTATE AMINO TRANSFERASE 20 U/L (15-37); BILIRUBIN,TOTAL 0.3 MG/DL (0.2-1.0); BLOOD UREA NITROGEN 10 mg/dL (7-18); CALCIUM 9.1 MG/DL (8.5-10.1); CARBON DIOXIDE 31 MMOL/L (21-32); CHLORIDE 97 MMOL/L (98-107); CHOLESTEROL 147 MG/DL (< 200); CREATININE 0.9 MG/DL (0.55-1.30); GAMMA GLUTAMYL TRANSPEPTIDASE 13 U/L (5-85); HDL CHOLESTEROL 67 MG/DL (40-60); PHOSPHORUS 3.5 MG/DL (2.5-4.9); POTASSIUM 3.8 MMOL/L (3.5-5.1); SODIUM 139 MMOL/L (136-145); TRIGLYCERIDES 55 MG/DL (30-150)
[2018-06-10 08:00] VITALS: BP 148/80
[2018-06-10] MEDS: Docusate 100mg cap ORAL SCH ×3 (08:22→17:41)
[2018-06-10] MEDS: HYDROcodone/Acetamin 5/325 tab ORAL PRN ×2 (08:23→13:16)
[2018-06-10 08:29] LABS: FERRITIN 166 NG/ML (8-388)
[2018-06-10 09:35] LABS: % IRON SATURATION 32 % (15-50); IRON 46 ug/dL (50-175); TOTAL IRON BINDING CAPACITY 146 ug/dL (250-450)
--- NOTE | 2018-06-10 09:40 | General Progress Note ---
Assessment/Plan Assessment/Plan (1) Lumbar Radiculopathy (2) Multilevel lumbar compression fx (3) Pelvic pain (4) Left iliac crest fx Will be continued on [place]. D/w Dr. Vu and he concurred. Subjective Date patient seen: Jun 10, 2018 Time patient seen: 08:45 - am Constitutional: Reports: weakness HEENT: Reports: no symptoms Cardiovascular: Reports: no symptoms Respiratory: Reports: no symptoms Gastrointestinal/Abdominal: Reports: no symptoms Genitourinary: Reports: no symptoms Neurologic/Psychiatric: Reports: weakness Endocrine: Reports: no symptoms Hematologic/Lymphatic: Reports: no symptoms Allergies: Coded Allergies: No Known Allergies (Unverified , 03/20/18) Subjective Patient is in bed c/o pain with minimal relief on the [place]. MRI pending. Objective Last 24 Hour Vital Signs Date Time Temp Pulse Resp B/P (MAP) Pulse Ox O2 Delivery O2 Flow Rate FiO2 06/10/18 08:22 74 148/80 06/10/18 04:00 97.9 70 18 144/78 (100) 06/10/18 00:00 98.4 70 18 146/77 (100) 95 06/09/18 21:00 Nasal Cannula 2.0 06/09/18 20:00 97.2 67 20 132/72 (92) 97 06/09/18 16:06 61 162/80 06/09/18 16:00 98.0 61 19 162/80 (107) 92 06/09/18 12:00 98.6 56 18 156/47 (83) 98 Intake and Output 06/09/18 06/10/18 19:00 07:00 Intake Total 120 ml 840 ml Output Total 850 ml 900 ml Balance -730 ml -60 ml Intake Oral 120 ml 840 ml Output Urine Total 850 ml 900 ml Laboratory Tests 06/09/18 11:11: Urine Total Protein [Pending], Urine Albumin (%) [Pending], Urine Alpha-1- Globulins (%) [Pending], Urine Epqsf-3-[id number] (%) [Pending], Urine Beta- Globulin (%) [Pending], Urine Gamma Globulin (%) [Pending], Ur Protein Electrophoresis M-Olaf [Pending], Urine Protein Electrophoresis Intrp [Pending] 06/09/18 18:00: Immunoglobulin G [Pending], Immunoglobulin A [Pending], Immunoglobulin M [ Pending], Immunofixation Screen [Pending], Hepatitis A IgM Antibody Negative, Hepatitis B Surface Antigen Negative, Hepatitis B Core IgM Antibody Negative, Hepatitis C Antibody <0.1, HIV (1&2) Antibody Rapid Negative 06/10/18 04:55: White Blood Count 4.9, Red Blood Count 2.88L, Hemoglobin 8.8L, Hematocrit 28.0L , Mean Corpuscular Volume 97, Mean Corpuscular Hemoglobin 30.8, Mean Corpuscular Hemoglobin Concent 31.6L, Red Cell Distribution Width 14.9H, Platelet Count 206, Mean Platelet Volume 6.6, Neutrophils (%) (Auto) 46.1, Lymphocytes (%) (Auto) 41.2, Monocytes (%) (Auto) 8.9, Eosinophils (%) (Auto) 3.0, Basophils (%) (Auto) 0.8, Erythrocyte Sedimentation Rate 92H, Reticulocyte Count [Pending], Prothrombin Time 11.5, Prothromb Time International Ratio 1.1, Activated Partial Thromboplast Time 43H, Sodium Level 139, Potassium Level 3.8, Chloride Level 97L, Carbon Dioxide Level 31, Anion Gap 11, Blood Urea Nitrogen 10, Creatinine 0.9, Estimat Glomerular Filtration Rate > 60, Glucose Level 83, Hemoglobin A1c 5.4, Uric Acid 2.3L, Calcium Level 9.1, Phosphorus Level 3.5, Magnesium Level 1.7L, Iron Level 46L, Total Iron Binding Capacity 146L, Percent Iron Saturation 32, Unsaturated Iron Binding 100L, Ferritin 166, Total Bilirubin 0.3, Gamma Glutamyl Transpeptidase 13, Aspartate Amino Transf (AST/ SGOT) 20, Alanine Aminotransferase (ALT/SGPT) 14, Alkaline Phosphatase 77, Lactate Dehydrogenase 88, Troponin I 0.008, C-Reactive Protein, Quantitative < 0.4, Total Protein 10.1H, Albumin 2.3L, Globulin 7.8, Albumin/Globulin Ratio 0.3L, Triglycerides Level 55, Cholesterol Level 147, LDL Cholesterol 62, HDL Cholesterol 67H, Cholesterol/HDL Ratio 2.2L, Carcinoembryonic Antigen [Pending] , Vitamin B12 Level 266, Folate 10.9, Thyroid Stimulating Hormone (TSH) 1.312 Height (Feet): 5 Height (Inches): 7.00 Weight (Pounds): 120 General Appearance: no apparent distress, alert EENT: PERRL/EOMI, normal ENT inspection Neck: normal alignment, supple Cardiovascular: normal rate, regular rhythm Respiratory/Chest: lungs clear, normal breath sounds Abdomen: non tender, soft Extremities: non-tender Edema: trace edema Neurologic: alert, oriented x 3 Skin: warm/dry Nils Bledsoe Jun 10, 2018 09:40
--- NOTE | 2018-06-10 11:00 | NUR ---
NURSE NOTES: Stool specimen collected and sent to lab
--- NOTE | 2018-06-10 11:04 | NUR ---
PT WAITING FOR LAB WORK TO RETURN. STILL REFUSING MRI EXAM. TJB
[2018-06-10 12:00] VITALS: BP 143/78
--- NOTE | 2018-06-10 13:00 | Consultation ---
History of Present Illness General Date patient seen: Jun 10, 2018 Chief Complaint: Lower Back Pain or Injury Present Illness HPI 63-year-old female presents to the emergency department complaining of 10 out of 10 in severity low back pain as well as right upper hip pain. She states that she has been ambulatory the whole time however her symptoms have been progressive she reports that her pain is exacerbated upon walking and standing. Denies urinary incontinence or urinary retention. Denies paresthesias of the lower extremities or saddle anesthesia. Pt is admitted for intractable back pain. Allergies: Coded Allergies: No Known Allergies (Unverified , 03/20/18) Medication History Scheduled Alprazolam* (Xanax*), 1 MG ORAL BID, (Reported) Methocarbamol* (Robaxin-750*), 750 MG PO TID Miscellaneous Medications Ibuprofen* (Motrin*), Unknown Dose ORAL, (Reported) Discontinued Medications Acetaminophen (Tylenol), 650 MG ORAL Q8HR PRN for Prn Pain/Headache/Temp > 101 Discontinued Reason: Therapy completed Patient History Healthcare decision maker Resuscitation status Full Code Advanced Directive on File Past Medical/Surgical History Past Medical/Surgical History: (1) No pertinent past medical history Review of Systems Hematologic/Lymphatic: Reports: no symptoms Physical Exam General Appearance: WD/WN, no apparent distress Lines, tubes and drains: peripheral HEENT: normocephalic, atraumatic Neck: non-tender, normal alignment Respiratory/Chest: chest wall non-tender, lungs clear Breasts: no masses Cardiovascular/Chest: normal rate Abdomen: normal bowel sounds Last 24 Hour Vital Signs Date Time Temp Pulse Resp B/P (MAP) Pulse Ox O2 Delivery O2 Flow Rate FiO2 06/10/18 09:00 Room Air 06/10/18 08:22 74 148/80 06/10/18 08:00 97.7 74 20 148/80 (102) 95 06/10/18 04:00 97.9 70 18 144/78 (100) 06/10/18 00:00 98.4 70 18 146/77 (100) 95 06/09/18 21:00 Nasal Cannula 2.0 06/09/18 20:00 97.2 67 20 132/72 (92) 97 06/09/18 16:06 61 162/80 06/09/18 16:00 98.0 61 19 162/80 (107) 92 Intake and Output 4/10/19 4/11/19 19:00 07:00 Intake Total 120 ml 840 ml Output Total 850 ml 900 ml Balance -730 ml -60 ml Intake Oral 120 ml 840 ml Output Urine Total 850 ml 900 ml Laboratory Tests Test 06/09/18 18:00 06/10/18 04:55 06/10/18 10:50 Immunoglobulin G 440 mg/dL (700-1600) L Immunoglobulin A >6400 mg/dL (87-352) H Immunoglobulin M 21 mg/dL (26-217) L Immunofixation Screen Comment (.) Hepatitis A IgM Antibody Negative (Negative) Hepatitis B Surface Antigen Negative (Negative) Hepatitis B Core IgM Antibody Negative (Negative) Hepatitis C Antibody <0.1 s/co ratio HIV (1&2) Antibody Rapid Negative (NEGATIVE) White Blood Count 4.9 K/UL (4.8-10.8) Red Blood Count 2.88 M/UL (4.20-5.40) L Hemoglobin 8.8 G/DL (12.0-16.0) L Hematocrit 28.0 % (37.0-47.0) L Mean Corpuscular Volume 97 FL (80-99) Mean Corpuscular Hemoglobin 30.8 PG (27.0-31.0) Mean Corpuscular Hemoglobin Concent 31.6 G/DL (32.0-36.0) L Red Cell Distribution Width 14.9 % (11.6-14.8) H Platelet Count 206 K/UL (150-450) Mean Platelet Volume 6.6 FL (6.5-10.1) Neutrophils (%) (Auto) 46.1 % (45.0-75.0) Lymphocytes (%) (Auto) 41.2 % (20.0-45.0) Monocytes (%) (Auto) 8.9 % (1.0-10.0) Eosinophils (%) (Auto) 3.0 % (0.0-3.0) Basophils (%) (Auto) 0.8 % (0.0-2.0) Neutrophils % (Manual) Pending Lymphocytes % (Manual) Pending Platelet Estimate Pending Platelet Morphology Pending Erythrocyte Sedimentation Rate 92 MM/HR (0-30) H Reticulocyte Count 1.6 % (0.0-2.0) Prothrombin Time 11.5 SEC (9.30-11.50) Prothromb Time International Ratio 1.1 (0.9-1.1) Activated Partial Thromboplast Time 43 SEC (23-33) H Sodium Level 139 MMOL/L (136-145) Potassium Level 3.8 MMOL/L (3.5-5.1) Chloride Level 97 MMOL/L (98-107) L Carbon Dioxide Level 31 MMOL/L (21-32) Anion Gap 11 mmol/L (5-15) Blood Urea Nitrogen 10 mg/dL (7-18) Creatinine 0.9 MG/DL (0.55-1.30) Estimat Glomerular Filtration Rate > 60 mL/min (>60) Glucose Level 83 MG/DL (74-106) Hemoglobin A1c 5.4 % (4.3-6.0) Uric Acid 2.3 MG/DL (2.6-7.2) L Calcium Level 9.1 MG/DL (8.5-10.1) Phosphorus Level 3.5 MG/DL (2.5-4.9) Magnesium Level 1.7 MG/DL (1.8-2.4) L Iron Level 46 ug/dL (50-175) L Total Iron Binding Capacity 146 ug/dL (250-450) L Percent Iron Saturation 32 % (15-50) Unsaturated Iron Binding 100 ug/dL (112-346) L Ferritin 166 NG/ML (8-388) Total Bilirubin 0.3 MG/DL (0.2-1.0) Gamma Glutamyl Transpeptidase 13 U/L (5-85) Aspartate Amino Transf (AST/SGOT) 20 U/L (15-37) Alanine Aminotransferase (ALT/SGPT) 14 U/L (12-78) Alkaline Phosphatase 77 U/L (46-116) Lactate Dehydrogenase 88 U/L (81-234) Troponin I 0.008 ng/mL (0.000-0.056) C-Reactive Protein, Quantitative < 0.4 mg/dL (0.00-0.90) Total Protein 10.1 G/DL (6.4-8.2) H Albumin 2.3 G/DL (3.4-5.0) L Globulin 7.8 g/dL Albumin/Globulin Ratio 0.3 (1.0-2.7) L Triglycerides Level 55 MG/DL (30-150) Cholesterol Level 147 MG/DL (< 200) LDL Cholesterol 62 mg/dL (<100) HDL Cholesterol 67 MG/DL (40-60) H Cholesterol/HDL Ratio 2.2 (3.3-4.4) L Carcinoembryonic Antigen Pending Vitamin B12 Level 266 PG/ML (193-986) Folate 10.9 NG/ML (8.6-58.9) Thyroid Stimulating Hormone (TSH) 1.312 uiU/mL (0.358-3.740) Stool Occult Blood Positive (NEGATIVE) Height (Feet): 5 Height (Inches): 7.00 Weight (Pounds): 120 Medications Current Medications Medications (Trade) Dose Ordered Sig/Travis Route PRN Reason Start Time Stop Time Status Last Admin Dose Admin Acetaminophen (Tylenol) 650 mg Q4H PRN ORAL Mild Pain/Temp > 100.5 06/08/18 21:15 07/08/18 21:14 Acetaminophen/ Hydrocodone Bitart ([place] 5/325) 1 tab Q4H PRN ORAL Severe Pain 06/08/18 21:15 06/15/18 21:14 06/10/18 08:23 Docusate Sodium (Colace) 100 mg THREE TIMES A DAY ORAL 06/09/18 18:00 07/09/18 17:59 06/10/18 08:22 Heparin Sodium (Porcine) (Heparin 5000 units/ml) 5,000 units EVERY 8 HOURS SUBQ 06/09/18 22:00 07/09/18 21:59 Nifedipine (Procardia XL) 30 mg DAILY ORAL 06/10/18 09:00 07/10/18 08:59 06/10/18 08:22 Assessment/Plan Problem List: (1) Compression fx, lumbar spine ICD Codes: S32.000A - Wedge compression fracture of unspecified lumbar vertebra , initial encounter for closed fracture SNOMED: 744477717 Qualifiers: Qualified Codes: S32.030A - Wedge compression fracture of third lumbar vertebra, initial encounter for closed fracture (2) Closed pelvic fracture ICD Codes: S32.9XXA - Fracture of unspecified parts of lumbosacral spine and pelvis, initial encounter for closed fracture SNOMED: [id number] Qualifiers: Qualified Codes: S32.9XXA - Fracture of unspecified parts of lumbosacral spine and pelvis, initial encounter for closed fracture Assessment/Plan symptomatic treatment pain control dvt prophylaxis might need to go to rehab Claudia Trinidad MD Jun 10, 2018 13:00
--- NOTE | 2018-06-10 13:00 | NUR ---
CHARGE NURSE NOTE: Mg 1.7. notified.
--- NOTE | 2018-06-10 14:20 | NUR ---
NURSE NOTES: Spoke to regarding OB stool result and heparin. New order received. Order read back and carried out.
--- NOTE | 2018-06-10 14:45 | Consultation ---
DATE OF CONSULTATION: 06/09/2018 PAIN MANAGEMENT CONSULTATION CONSULTING PHYSICIAN: Franny Vu M.D. REFERRING PHYSICIAN: Néstor Marrero M.D. PHYSICIAN [employer]UR[employer] MAKER: Jude Hahn CHIEF COMPLAINT: Back pain HISTORY OF PRESENT ILLNESS: This is a 63-year-old female, being seen on the Med[facility]surg floor of [facility] for initial pain management consultation complaint of back and pelvic pain for the past two days. The patient explained that she was picking up a heavy pot and started to have pain. Denies any fall or trauma. On admission, CT scan of the pelvic and lumbar spine was ordered. Found to have multiple compression FX. At this time, the patient is seen by oncologist, who is r/o possible multiple myeloma An orthopedic surgeon has ordered an MRI of the lumbar spine to assess fractures. At this time, we were consulted to help the patient to have adequate pain control while here in the hospital. PAST MEDICAL HISTORY: Asthma PAST SURGICAL HISTORY: denies SOCIAL HISTORY: H/o smoking. Denies alcohol abuse and IV drug abuse. ALLERGIES: NKDA REVIEW OF SYSTEMS: Denies rash, fever, chills, sweating, dizziness, drowsiness, blurred vision, sore throat, or change in weight. No shortness of breath or chest pain. No nausea, vomiting, or blood in the stool or urine. No bowel or bladder incontinence. c/o back pain PHYSICAL EXAMINATION: GENERAL: Alert and oriented. VITAL SIGNS: Stable. HEENT: PERRLA. NECK: Range of motion is full in all directions. HEART: Regular. ABDOMEN: Soft and nontender. BACK: ROM decreased on Flexion and extension, tenderness to palpation. EXTREMITIES: UE and LE ROM decreased NO CCE, sensory intact, no adenopathy. ASSESSMENT AND PLAN: The patient is a 63-year-old female with Lumbar radiculopathy multi level compression fractures and pelvic pain due to left iliac crest fx. The pain will continued on [place]. The patient was discussed with Dr. Vu, and Dr. Vu concurred. We will follow the patient. Thank you very much for the courtesy of this consultation. Franny Vu M.D. ISIDRA Hahn DR: ZAN JOB#: [id number] CC: CHEIKH
[2018-06-10 16:00] VITALS: BP 140/73
--- NOTE | 2018-06-10 16:41 | Nephrology Progress Note ---
Assessment/Plan Problem List: (1) Monoclonal gammopathy Assessment: MM (2) Compression fx, lumbar spine (3) Anemia Assessment: MM (4) Osteoporosis of disuse (5) Urinary outflow obstruction Assessment Anemia, suspected MM corrected for hypoalbuminemia, patient has hypercalcemia mild HTN Multiple vertebral compression fracture Profound osteoporosis. Right lower lobe pulmonary parenchymal consolidation or atelectasis. nondisplaced left anterior iliac bone fracture. urinary outlet obstruction fecal impaction Plan [place] anemia kim per ortho / Onco.... procardia for HTN SQ Heparin Subjective ROS Limited/Unobtainable: No Constitutional: Reports: malaise Objective Objective Last 24 Hour Vital Signs Date Time Temp Pulse Resp B/P (MAP) Pulse Ox O2 Delivery O2 Flow Rate FiO2 06/10/18 12:00 97.7 68 20 143/78 (99) 95 06/10/18 09:00 Room Air 06/10/18 08:22 74 148/80 06/10/18 08:00 97.7 74 20 148/80 (102) 95 06/10/18 04:00 97.9 70 18 144/78 (100) 06/10/18 00:00 98.4 70 18 146/77 (100) 95 06/09/18 21:00 Nasal Cannula 2.0 06/09/18 20:00 97.2 67 20 132/72 (92) 97 Intake and Output 06/09/18 06/10/18 19:00 07:00 Intake Total 120 ml 840 ml Output Total 850 ml 900 ml Balance -730 ml -60 ml Intake Oral 120 ml 840 ml Output Urine Total 850 ml 900 ml Laboratory Tests 06/09/18 18:00: Immunoglobulin G 440L, Immunoglobulin A >6400H, Immunoglobulin M 21L, Immunofixation Screen Comment, Hepatitis A IgM Antibody Negative, Hepatitis B Surface Antigen Negative, Hepatitis B Core IgM Antibody Negative, Hepatitis C Antibody <0.1, HIV (1&2) Antibody Rapid Negative 06/10/18 04:55: White Blood Count 4.9, Red Blood Count 2.88L, Hemoglobin 8.8L, Hematocrit 28.0L , Mean Corpuscular Volume 97, Mean Corpuscular Hemoglobin 30.8, Mean Corpuscular Hemoglobin Concent 31.6L, Red Cell Distribution Width 14.9H, Platelet Count 206, Mean Platelet Volume 6.6, Neutrophils (%) (Auto) 46.1, Lymphocytes (%) (Auto) 41.2, Monocytes (%) (Auto) 8.9, Eosinophils (%) (Auto) 3.0, Basophils (%) (Auto) 0.8, Differential Total Cells Counted 100, Neutrophils % (Manual) 44L, Lymphocytes % (Manual) 42, Monocytes % (Manual) 10, Eosinophils % (Manual) 4H, Basophils % (Manual) 0, Band Neutrophils 0, Platelet Estimate Adequate, Platelet Morphology Normal, Hypochromasia 2+, Anisocytosis 1+ , Rouleau 2+, Erythrocyte Sedimentation Rate 92H, Reticulocyte Count 1.6, Prothrombin Time 11.5, Prothromb Time International Ratio 1.1, Activated Partial Thromboplast Time 43H, Sodium Level 139, Potassium Level 3.8, Chloride Level 97L, Carbon Dioxide Level 31, Anion Gap 11, Blood Urea Nitrogen 10, Creatinine 0.9, Estimat Glomerular Filtration Rate > 60, Glucose Level 83, Hemoglobin A1c 5.4, Uric Acid 2.3L, Calcium Level 9.1, Phosphorus Level 3.5, Magnesium Level 1.7L, Iron Level 46L, Total Iron Binding Capacity 146L, Percent Iron Saturation 32, Unsaturated Iron Binding 100L, Ferritin 166, Total Bilirubin 0.3, Gamma Glutamyl Transpeptidase 13, Aspartate Amino Transf (AST/ SGOT) 20, Alanine Aminotransferase (ALT/SGPT) 14, Alkaline Phosphatase 77, Lactate Dehydrogenase 88, Troponin I 0.008, C-Reactive Protein, Quantitative < 0.4, Total Protein 10.1H, Albumin 2.3L, Globulin 7.8, Albumin/Globulin Ratio 0.3L, Triglycerides Level 55, Cholesterol Level 147, LDL Cholesterol 62, HDL Cholesterol 67H, Cholesterol/HDL Ratio 2.2L, Carcinoembryonic Antigen [Pending] , Vitamin B12 Level 266, Folate 10.9, Thyroid Stimulating Hormone (TSH) 1.312 06/10/18 10:50: Stool Occult Blood Positive Height (Feet): 5 Height (Inches): 7.00 Weight (Pounds): 120 General Appearance: no apparent distress, lethargic Cardiovascular: regular rhythm Respiratory/Chest: lungs clear Abdomen: soft Patrick Marino MD Jun 10, 2018 16:41
--- NOTE | 2018-06-10 17:29 | General Progress Note ---
Assessment/Plan Assessment/Plan Assessment and Recs # Multiple myeloma, IgA subtype, donnie light chain restriction, versus other similar monolonal neoplasm such as [place]strom[place] she presents with back pain, as well as compression fractures, lesions in the cranium, which is new for the patient, iliac lesions, this is all potentially suacute to chronic. --> Myeloma evaluation has been ordered and preliminary results shows HIGH iGA, hypercalcemia, bony lesions, however spep and upep to follow --> Will consider a bone marrow biopsy if patient will benefit from this as it will give myeloma subtype, cytogenetics (gene mutations) which can potentially give us information in regards to prognosis --> Imaging has been reviewed, will benefit from CT c/a/p but patient has refused this procedure --> If myleoma, patients given her performance status can do very well, average lifespan >5 years with treatment # Anemia of chronic disease (or of iron deficiency) due to underlying chronic medical issues, multifactorial --> Anemia workup has been ordered, rule out gi bleed --> No evidence of hemolysis is noted, peripheral smear has been reviewed. --> Hgb goal >7. Transfuse prn. --> Epogen or iron at this time is not particularly indicated --> Medications have been reviewed --> evaluate with Gi team prn --> transfuse if hgb is < 7 (will trend CBC daily) # Leukopenia - could be related to myleoma --> hepatitis and hiv ordered --> again can benefit at some point with a bone marrow biopsy # Fractures of her back and iliac wing, burst compression fracture of L5, anterior wedge compression fracture fracture of L3 and mild anterior wedge compression fracture of L1. --> seen by ortho # Mechanical trip and fall approximately one month ago. Patient denies hitting her head or having loss of consciousness. # Anxiety, generalzed The timing of this note does not necessarily reflect the time of the patient was seen. Greatly appreciate consultation! Subjective Constitutional: Denies: no symptoms, chills, diaphoresis, fever, malaise, weakness, other HEENT: Denies: no symptoms, eye pain, blurred vision, tearing, double vision, ear pain, ear discharge, nose pain, nose congestion, throat pain, throat swelling, mouth pain, mouth swelling, other Cardiovascular: Denies: no symptoms, chest pain, edema, irregular heart rate, lightheadedness, palpitations, syncope, other Genitourinary: Denies: no symptoms, burning, discharge, frequency, flank pain, hematuria, incontinence, pain, urgency, other Neurologic/Psychiatric: Denies: no symptoms, anxiety, depressed, emotional problems, headache, numbness, paresthesia, pre-existing deficit, seizure, tingling, tremors, weakness, other Endocrine: Denies: no symptoms, excessive sweating, flushing, intolerance to cold, intolerance to heat, increased hunger, increased thirst, increased urine, unexplained weight gain, unexplained weight loss, other Hematologic/Lymphatic: Denies: no symptoms, anemia, easy bleeding, easy bruising, other Allergies: Coded Allergies: No Known Allergies (Unverified , 03/20/18) Subjective 06/10: no events, continues to be in pain, dw her she may need bone marrow biopsy , labs reviewed Objective Last 24 Hour Vital Signs Date Time Temp Pulse Resp B/P (MAP) Pulse Ox O2 Delivery O2 Flow Rate FiO2 06/10/18 16:00 98.7 69 20 140/73 (95) 96 06/10/18 12:00 97.7 68 20 143/78 (99) 95 06/10/18 09:00 Room Air 06/10/18 08:22 74 148/80 06/10/18 08:00 97.7 74 20 148/80 (102) 95 06/10/18 04:00 97.9 70 18 144/78 (100) 06/10/18 00:00 98.4 70 18 146/77 (100) 95 06/09/18 21:00 Nasal Cannula 2.0 06/09/18 20:00 97.2 67 20 132/72 (92) 97 Intake and Output 06/09/18 06/10/18 19:00 07:00 Intake Total 120 ml 840 ml Output Total 850 ml 900 ml Balance -730 ml -60 ml Intake Oral 120 ml 840 ml Output Urine Total 850 ml 900 ml Laboratory Tests 06/09/18 18:00: Immunoglobulin G 440L, Immunoglobulin A >6400H, Immunoglobulin M 21L, Immunofixation Screen Comment, Hepatitis A IgM Antibody Negative, Hepatitis B Surface Antigen Negative, Hepatitis B Core IgM Antibody Negative, Hepatitis C Antibody <0.1, HIV (1&2) Antibody Rapid Negative 06/10/18 04:55: White Blood Count 4.9, Red Blood Count 2.88L, Hemoglobin 8.8L, Hematocrit 28.0L , Mean Corpuscular Volume 97, Mean Corpuscular Hemoglobin 30.8, Mean Corpuscular Hemoglobin Concent 31.6L, Red Cell Distribution Width 14.9H, Platelet Count 206, Mean Platelet Volume 6.6, Neutrophils (%) (Auto) 46.1, Lymphocytes (%) (Auto) 41.2, Monocytes (%) (Auto) 8.9, Eosinophils (%) (Auto) 3.0, Basophils (%) (Auto) 0.8, Differential Total Cells Counted 100, Neutrophils % (Manual) 44L, Lymphocytes % (Manual) 42, Monocytes % (Manual) 10, Eosinophils % (Manual) 4H, Basophils % (Manual) 0, Band Neutrophils 0, Platelet Estimate Adequate, Platelet Morphology Normal, Hypochromasia 2+, Anisocytosis 1+ , Rouleau 2+, Erythrocyte Sedimentation Rate 92H, Reticulocyte Count 1.6, Prothrombin Time 11.5, Prothromb Time International Ratio 1.1, Activated Partial Thromboplast Time 43H, Sodium Level 139, Potassium Level 3.8, Chloride Level 97L, Carbon Dioxide Level 31, Anion Gap 11, Blood Urea Nitrogen 10, Creatinine 0.9, Estimat Glomerular Filtration Rate > 60, Glucose Level 83, Hemoglobin A1c 5.4, Uric Acid 2.3L, Calcium Level 9.1, Phosphorus Level 3.5, Magnesium Level 1.7L, Iron Level 46L, Total Iron Binding Capacity 146L, Percent Iron Saturation 32, Unsaturated Iron Binding 100L, Ferritin 166, Total Bilirubin 0.3, Gamma Glutamyl Transpeptidase 13, Aspartate Amino Transf (AST/ SGOT) 20, Alanine Aminotransferase (ALT/SGPT) 14, Alkaline Phosphatase 77, Lactate Dehydrogenase 88, Troponin I 0.008, C-Reactive Protein, Quantitative < 0.4, Total Protein 10.1H, Albumin 2.3L, Globulin 7.8, Albumin/Globulin Ratio 0.3L, Triglycerides Level 55, Cholesterol Level 147, LDL Cholesterol 62, HDL Cholesterol 67H, Cholesterol/HDL Ratio 2.2L, Carcinoembryonic Antigen [Pending] , Vitamin B12 Level 266, Folate 10.9, Thyroid Stimulating Hormone (TSH) 1.312 06/10/18 10:50: Stool Occult Blood Positive Height (Feet): 5 Height (Inches): 7.00 Weight (Pounds): 120 Objective PE: Vitals: reviewed General Appearance: NAD HEENT: normocephalic, atraumatic Neck: non-tender, normal alignment Respiratory/Chest: nromal breath sounds bilaterally Cardiovascular/Chest: normal peripheral pulses, normal rate Abdomen: normal bowel sounds, soft, nontender Extremities: normal range of motion Neuro: difficult to perform given leg pain, back pain Dmitriy Freed MD Jun 10, 2018 17:29
--- NOTE | 2018-06-10 19:30 | NUR ---
HAND-OFF: Report given to Laurence DILL. Patient in stable condition.
--- NOTE | 2018-06-10 19:50 | NUR ---
NURSE NOTES: Patient is in bed, aox4, talkative. VSS, no signs of distress, no pain noted. IV site intact, clean dry. Bed low, call light within reach.
[2018-06-10 20:00] VITALS: BP 131/75
--- NOTE | 2018-06-10 22:01 | General Progress Note ---
Assessment/Plan Problem List: (1) Compression fx, lumbar spine ICD Codes: S32.000A - Wedge compression fracture of unspecified lumbar vertebra , initial encounter for closed fracture SNOMED: 290905452 Qualifiers: Qualified Codes: S32.030A - Wedge compression fracture of third lumbar vertebra, initial encounter for closed fracture (2) Closed pelvic fracture ICD Codes: S32.9XXA - Fracture of unspecified parts of lumbosacral spine and pelvis, initial encounter for closed fracture SNOMED: 71001400 Qualifiers: Qualified Codes: S32.9XXA - Fracture of unspecified parts of lumbosacral spine and pelvis, initial encounter for closed fracture (3) Anemia ICD Codes: D64.9 - Anemia, unspecified SNOMED: 447620745 (4) Osteoporosis of disuse ICD Codes: M81.8 - Other osteoporosis without current pathological fracture SNOMED: 72741349 Status: progressing Assessment/Plan mutiple fracture r/o pathological fracture r/o mutiple myeloma chronic pain Subjective ROS Limited/Unobtainable: Yes Allergies: Coded Allergies: No Known Allergies (Unverified , 03/20/18) Objective Last 24 Hour Vital Signs Date Time Temp Pulse Resp B/P (MAP) Pulse Ox O2 Delivery O2 Flow Rate FiO2 06/10/18 16:00 98.7 69 20 140/73 (95) 96 06/10/18 12:00 97.7 68 20 143/78 (99) 95 06/10/18 09:00 Room Air 06/10/18 08:22 74 148/80 06/10/18 08:00 97.7 74 20 148/80 (102) 95 06/10/18 04:00 97.9 70 18 144/78 (100) 06/10/18 00:00 98.4 70 18 146/77 (100) 95 Intake and Output 06/09/18 06/10/18 19:00 07:00 Intake Total 120 ml 840 ml Output Total 850 ml 900 ml Balance -730 ml -60 ml Intake Oral 120 ml 840 ml Output Urine Total 850 ml 900 ml Laboratory Tests 06/10/18 04:55: White Blood Count 4.9, Red Blood Count 2.88L, Hemoglobin 8.8L, Hematocrit 28.0L , Mean Corpuscular Volume 97, Mean Corpuscular Hemoglobin 30.8, Mean Corpuscular Hemoglobin Concent 31.6L, Red Cell Distribution Width 14.9H, Platelet Count 206, Mean Platelet Volume 6.6, Neutrophils (%) (Auto) 46.1, Lymphocytes (%) (Auto) 41.2, Monocytes (%) (Auto) 8.9, Eosinophils (%) (Auto) 3.0, Basophils (%) (Auto) 0.8, Differential Total Cells Counted 100, Neutrophils % (Manual) 44L, Lymphocytes % (Manual) 42, Monocytes % (Manual) 10, Eosinophils % (Manual) 4H, Basophils % (Manual) 0, Band Neutrophils 0, Platelet Estimate Adequate, Platelet Morphology Normal, Hypochromasia 2+, Anisocytosis 1+ , Rouleau 2+, Erythrocyte Sedimentation Rate 92H, Reticulocyte Count 1.6, Prothrombin Time 11.5, Prothromb Time International Ratio 1.1, Activated Partial Thromboplast Time 43H, Sodium Level 139, Potassium Level 3.8, Chloride Level 97L, Carbon Dioxide Level 31, Anion Gap 11, Blood Urea Nitrogen 10, Creatinine 0.9, Estimat Glomerular Filtration Rate > 60, Glucose Level 83, Hemoglobin A1c 5.4, Uric Acid 2.3L, Calcium Level 9.1, Phosphorus Level 3.5, Magnesium Level 1.7L, Iron Level 46L, Total Iron Binding Capacity 146L, Percent Iron Saturation 32, Unsaturated Iron Binding 100L, Ferritin 166, Total Bilirubin 0.3, Gamma Glutamyl Transpeptidase 13, Aspartate Amino Transf (AST/ SGOT) 20, Alanine Aminotransferase (ALT/SGPT) 14, Alkaline Phosphatase 77, Lactate Dehydrogenase 88, Troponin I 0.008, C-Reactive Protein, Quantitative < 0.4, Total Protein 10.1H, Albumin 2.3L, Globulin 7.8, Albumin/Globulin Ratio 0.3L, Triglycerides Level 55, Cholesterol Level 147, LDL Cholesterol 62, HDL Cholesterol 67H, Cholesterol/HDL Ratio 2.2L, Carcinoembryonic Antigen [Pending] , Vitamin B12 Level 266, Folate 10.9, Thyroid Stimulating Hormone (TSH) 1.312 06/10/18 10:50: Stool Occult Blood Positive Height (Feet): 5 Height (Inches): 7.00 Weight (Pounds): 120 Cardiovascular: normal rate Respiratory/Chest: lungs clear Néstor Marrero MD Jun 10, 2018 22:01
[2018-06-11] VITALS: BP 153/69
[2018-06-11 04:00] VITALS: BP 146/76
--- NOTE | 2018-06-11 07:52 | NUR ---
HAND-OFF: Report given to ANIYAH Cole. Patient stable.
[2018-06-11 08:00] VITALS: BP 137/83
[2018-06-11] MEDS ORDERED: Morphine Sulfate 2mg/ml Inj(IV/IM USE ONLY) IVP SCH ×2 (08:00)
[2018-06-11] MEDS ORDERED: Lidocaine 2% 20mg/ml/Epi 0.005mg/ml 20ml vial INJ ONE (08:00)
[2018-06-11] MEDS ORDERED: LORazepam 1mg tab ORAL SCH (08:00)
[2018-06-11] MEDS ORDERED: ALPRAZolam 0.5mg tab ORAL SCH (08:00)
--- NOTE | 2018-06-11 08:00 | NUR ---
NURSE NOTES: Received report from ANIYAH Dang. Rounding done with outgoing nurse. Patient a/o x4 lying on the bed. No respiratory distress noted. Monroe catheter is patent and yellowish color noted. Bone marrow biopsy will be done today. Bed in lowest position, call light within reach. Will continue to monitor.
[2018-06-11] MEDS ORDERED: Lidocaine 2% MPF 5ml Vial INJ SCH (09:00)
[2018-06-11] MEDS: Docusate 100mg cap ORAL SCH ×3 (09:16→17:39)
--- NOTE | 2018-06-11 09:30 | NUR ---
NURSE NOTES: Bone marrow biopsy and aspiratory was done by pathology MD.
--- NOTE | 2018-06-11 10:03 | General Progress Note ---
Assessment/Plan Assessment/Plan (1) Lumbar Radiculopathy (2) Multilevel lumbar compression fx (3) Pelvic pain (4) Left iliac crest fx Will be continued on [place]. D/w Dr. Vu and he concurred. Subjective Date patient seen: Jun 11, 2018 Time patient seen: 08:45 - am Constitutional: Reports: weakness HEENT: Reports: no symptoms Cardiovascular: Reports: no symptoms Respiratory: Reports: no symptoms Gastrointestinal/Abdominal: Reports: no symptoms Genitourinary: Reports: no symptoms Neurologic/Psychiatric: Reports: weakness Endocrine: Reports: no symptoms Hematologic/Lymphatic: Reports: no symptoms Allergies: Coded Allergies: No Known Allergies (Unverified , 03/20/18) Subjective Patient reports pain has been tolerated on the [place]. Having BM biopsy, MRI still not performed. D/w nurse. Objective Last 24 Hour Vital Signs Date Time Temp Pulse Resp B/P (MAP) Pulse Ox O2 Delivery O2 Flow Rate FiO2 06/11/18 09:16 84 137/83 06/11/18 08:00 99.2 84 18 137/83 (101) 94 06/11/18 04:00 98.6 70 18 146/76 (99) 98 06/11/18 00:00 98.9 71 18 153/69 (97) 99 06/10/18 21:00 Room Air 06/10/18 20:00 98.9 71 20 131/75 (93) 96 06/10/18 16:00 98.7 69 20 140/73 (95) 96 06/10/18 12:00 97.7 68 20 143/78 (99) 95 Intake and Output 06/10/18 06/11/18 19:00 07:00 Intake Total 600 ml Output Total 800 ml 1200 ml Balance -200 ml -1200 ml Intake Oral 600 ml Output Urine Total 800 ml 1200 ml # Bowel Movements 1 1 Laboratory Tests 06/10/18 10:50: Stool Occult Blood Positive Height (Feet): 5 Height (Inches): 7.00 Weight (Pounds): 120 General Appearance: no apparent distress, alert EENT: PERRL/EOMI, normal ENT inspection Neck: non-tender, normal alignment Cardiovascular: normal rate, regular rhythm Respiratory/Chest: lungs clear, normal breath sounds Abdomen: non tender, soft Extremities: non-tender Edema: trace edema Neurologic: alert, oriented x 3 Skin: warm/dry Nils Bledsoe Jun 11, 2018 10:03
--- NOTE | 2018-06-11 10:16 | PATHOLOGY BONE BARROW ---
Bone Marrow Aspirate & Biopsy . PROCEDURE: Bone Marrow Aspirate and Biopsy INDICATION: Anemia, leukopenia PROCEDURE SUPERVISING DEPUTY: Chrissy Ramirez MD CONSENT: Consent was previously obtained from the patient. The risks and benefits were re-explained. The patient agreed to undergo the procedure. A TIMEOUT WAS EXECUTED: at 9:30am on 06-11-18. PROCEDURE SUMMARY: The patient was laid in the prone position. The right posterior iliac crest was prepped and draped in a sterile fashion. The crest of the posterior iliac was located, and the skin as well as surface of the bone was anesthetized with 10cc of 2% lidocaine. An aspirating needle was introduced, the bone marrow aspirate was obtained without any difficulty. This was withdrawn the coring needle was advanced into the bone cavity. A bone marrow core biopsy was not obtained, as the procedure was stopped due to the patient's complaints of pain. ESTIMATED BLOOD LOSS: Negligible REPORTS TO FOLLOW Chrissy Ramirez Jun 11, 2018 10:16
[2018-06-11 12:00] VITALS: BP 147/85
[2018-06-11] MEDS: HYDROcodone/Acetamin 5/325 tab ORAL PRN ×2 (12:39→17:40)
--- NOTE | 2018-06-11 12:40 | Pulmonology Progress Note ---
Assessment/Plan Problems: (1) Compression fx, lumbar spine (2) Closed pelvic fracture (3) Severe anemia (4) Monoclonal gammopathy Assessment/Plan bone marrow biopsy done, results will be available on Thursday symptomatic treatment prbc transfusion if hem less than 7 f/u oncology recommendation Subjective ROS Limited/Unobtainable: No Constitutional: Reports: no symptoms HEENT: Repors: no symptoms Allergies: Coded Allergies: No Known Allergies (Unverified , 03/20/18) Objective Last 24 Hour Vital Signs Date Time Temp Pulse Resp B/P (MAP) Pulse Ox O2 Delivery O2 Flow Rate FiO2 06/11/18 09:16 84 137/83 06/11/18 09:00 Room Air 06/11/18 08:00 99.2 84 18 137/83 (101) 94 06/11/18 04:00 98.6 70 18 146/76 (99) 98 06/11/18 00:00 98.9 71 18 153/69 (97) 99 06/10/18 21:00 Room Air 06/10/18 20:00 98.9 71 20 131/75 (93) 96 06/10/18 16:00 98.7 69 20 140/73 (95) 96 Intake and Output 06/10/18 06/11/18 19:00 07:00 Intake Total 600 ml Output Total 800 ml 1200 ml Balance -200 ml -1200 ml Intake Oral 600 ml Output Urine Total 800 ml 1200 ml # Bowel Movements 1 1 Objective General Appearance: WD/WN Lines, tubes and drains: peripheral HEENT: normocephalic, atraumatic Respiratory/Chest: chest wall non-tender, lungs clear Breasts: no masses Cardiovascular/Chest: normal peripheral pulses Abdomen: normal bowel sounds Genitourinary/Rectal: normal genital exam Current Medications Medications (Trade) Dose Ordered Sig/Travis Route PRN Reason Start Time Stop Time Status Last Admin Dose Admin Acetaminophen (Tylenol) 650 mg Q4H PRN ORAL Mild Pain/Temp > 100.5 06/08/18 21:15 07/08/18 21:14 Acetaminophen/ Hydrocodone Bitart ([place] 5/325) 1 tab Q4H PRN ORAL Severe Pain 06/08/18 21:15 06/15/18 21:14 06/10/18 13:16 Docusate Sodium (Colace) 100 mg THREE TIMES A DAY ORAL 06/09/18 18:00 07/09/18 17:59 06/11/18 09:16 Lidocaine HCl (Xylocaine 2% MPF) 10 ml ONCE INJ 06/11/18 09:00 06/11/18 23:59 Morphine Sulfate (Morphine Sulfate) 2 mg ONCE IVP 06/11/18 08:00 06/11/18 23:59 06/11/18 09:17 Nifedipine (Procardia XL) 30 mg DAILY ORAL 06/10/18 09:00 07/10/18 08:59 06/11/18 09:16 Claudia Trinidad MD Jun 11, 2018 12:40
--- NOTE | 2018-06-11 12:50 | NUR ---
NURSE NOTES: Patient off the unit for MRI. Patient is stable.
--- NOTE | 2018-06-11 13:35 | NUR ---
NURSE NOTES: Patient came back from MRI. Patient in stable condition.
--- NOTE | 2018-06-11 13:38 | NUR ---
CASE MANAGEMENT:REVIEW 06/11/18 SI: CLOSED PELVIC FRACTURE LUMBAR SPINE COMPRESSION FRACTURE. S/P BONE MARROW BX 97.6 76 19 147/85 94% ON RA H/H-8.8/28.0 IS: IV MORPHINE X1 PROCARDIA XL PO QD : MED/SURG [facility]
--- NOTE | 2018-06-11 13:55 | NUR ---
PT COMPLETED AN MRI LUMBAR W/O. PT REFUSED TO CONSENT TO CONTRAST. TJB 13:50
--- NOTE | 2018-06-11 15:05 | General Progress Note ---
Assessment/Plan Assessment/Plan Assessment and Recs # Multiple myeloma, IgA subtype, donnie light chain restriction, versus other similar monolonal neoplasm such as waldenstroms she presents with back pain, as well as compression fractures, lesions in the cranium, which is new for the patient, iliac lesions, this is all potentially suacute to chronic. --> Myeloma evaluation has been ordered and preliminary results shows HIGH iGA, hypercalcemia, bony lesions, however spep and upep to follow --> s/p bone marrow biopsy on 06/11/18 to help illucidate myeloma subtype, cytogenetics (gene mutations) which can potentially give us information in regards to prognosis --> received MRI of the spine today and results to be reviewed --> If myleoma, patients given her performance status can do very well, average lifespan >5 years with treatment # Anemia of chronic disease (or of iron deficiency) due to underlying chronic medical issues, multifactorial --> Anemia workup has been ordered, rule out gi bleed --> No evidence of hemolysis is noted, peripheral smear has been reviewed. --> Hgb goal >7. Transfuse prn. --> Epogen or iron at this time is not particularly indicated --> Medications have been reviewed --> evaluate with Gi team prn --> transfuse if hgb is < 7 (will trend CBC daily) # Leukopenia - could be related to myleoma --> hepatitis and hiv results are negative --> again can benefit at some point with a bone marrow biopsy # Fractures of her back and iliac wing, burst compression fracture of L5, anterior wedge compression fracture fracture of L3 and mild anterior wedge compression fracture of L1. --> seen by orthopedics # Mechanical trip and fall approximately one month ago. --> Patient denies hitting her head or having loss of consciousness. # Anxiety, generalized The timing of this note does not necessarily reflect the time of the patient was seen. Greatly appreciate consultation! Subjective Constitutional: Denies: no symptoms, chills, diaphoresis, fever, malaise, weakness, other HEENT: Denies: no symptoms, eye pain, blurred vision, tearing, double vision, ear pain, ear discharge, nose pain, nose congestion, throat pain, throat swelling, mouth pain, mouth swelling, other Cardiovascular: Denies: no symptoms, chest pain, edema, irregular heart rate, lightheadedness, palpitations, syncope, other Respiratory: Denies: no symptoms, cough, orthopnea, shortness of breath, SOB with excertion, SOB at rest, sputum, stridor, wheezing, other Gastrointestinal/Abdominal: Denies: no symptoms, abdomen distended, abdominal pain, black stools, tarry stools, blood in stool, constipated, diarrhea, difficulty swallowing, nausea, poor appetite, poor fluid intake, rectal bleeding , vomiting, other Genitourinary: Denies: no symptoms, burning, discharge, frequency, flank pain, hematuria, incontinence, pain, urgency, other Neurologic/Psychiatric: Denies: no symptoms, anxiety, depressed, emotional problems, headache, numbness, paresthesia, pre-existing deficit, seizure, tingling, tremors, weakness, other Endocrine: Denies: no symptoms, excessive sweating, flushing, intolerance to cold, intolerance to heat, increased hunger, increased thirst, increased urine, unexplained weight gain, unexplained weight loss, other Hematologic/Lymphatic: Denies: no symptoms, anemia, easy bleeding, easy bruising, other Allergies: Coded Allergies: No Known Allergies (Unverified , 03/20/18) Subjective 06/10: no events, continues to be in pain, dw her she may need bone marrow biopsy , labs reviewed 06/11: s/p bone marrow biopsy, no fevers or chills, feelijng better, to get mri today Objective Last 24 Hour Vital Signs Date Time Temp Pulse Resp B/P (MAP) Pulse Ox O2 Delivery O2 Flow Rate FiO2 06/11/18 12:00 97.6 76 19 147/85 (105) 94 06/11/18 09:16 84 137/83 06/11/18 09:00 Room Air 06/11/18 08:00 99.2 84 18 137/83 (101) 94 06/11/18 04:00 98.6 70 18 146/76 (99) 98 06/11/18 00:00 98.9 71 18 153/69 (97) 99 06/10/18 21:00 Room Air 06/10/18 20:00 98.9 71 20 131/75 (93) 96 06/10/18 16:00 98.7 69 20 140/73 (95) 96 Intake and Output 06/10/18 06/11/18 19:00 07:00 Intake Total 600 ml Output Total 800 ml 1200 ml Balance -200 ml -1200 ml Intake Oral 600 ml Output Urine Total 800 ml 1200 ml # Bowel Movements 1 1 Height (Feet): 5 Height (Inches): 7.00 Weight (Pounds): 120 Objective PE: Vitals: reviewed General Appearance: NAD HEENT: normocephalic, atraumatic Neck: non-tender, normal alignment Respiratory/Chest: nromal breath sounds bilaterally Cardiovascular/Chest: normal peripheral pulses, normal rate Abdomen: normal bowel sounds, soft, nontender Extremities: normal range of motion Neuro: difficult to perform given leg pain, back pain Dmitriy Freed MD Jun 11, 2018 15:05
--- NOTE | 2018-06-11 15:24 | Diagnostic Imaging Report ---
Indication: Back pain, abnormal recent CT scan, recent presumptive diagnosis of multiple myeloma Technique: Sagittal T1 and T2 fast spin echo, sagittal STIR, axial T1 and T2 fast spin-echo, axial T2 fat-saturated images of the lumbar spine Comparison: Reference made to CT lumbar spine dated 06/08/2018 Findings: There is a compression/burst fracture deformity of the L5 vertebral body, with both anterior wedging and vertebra plana deformity, resulting in approximately 60% height loss anteriorly, and up to 80% loss of height centrally, conforming to findings reported on recent CT scan. There is slight retropulsion of the superior aspect of the posterior wall. There is a compression fracture deformity of the L4 vertebral body, resulting in approximately 50% height loss anteriorly. This is mostly a wedge compression fracture, with a slight vertebra plana component. No evidence of posterior retropulsion. There is an anterior wedge/vertebra plana compression fracture deformity of the L3 vertebral body, with approximately 40-50% anterior height loss, slightly greater central height loss. No posterior retropulsion L1 and L2 demonstrate mostly central endplate compression deformities, with very slight height loss of the L2 vertebral body anteriorly. T12 demonstrates slight central endplate depression. T10 and T11 are probably within normal limits although mild loss of height is possible. The lumbar spine demonstrates diffusely abnormal marrow signal. The STIR signal is diffusely mildly increased. The T1 signal is diffusely and markedly decreased. This is most striking at L2-L5. The T2 signal is mixed, mostly somewhat decreased. There is slight anterior offset of L3 on L4, posterior offset of L4 on L5. The remainder of the bony alignment is normal. The conus medullaris terminates at the L1 level. At L2-3, circumferential annular bulge results in borderline narrowing of the spinal canal. The neural foramina are preserved. At L3-4, the alignment abnormality results in borderline narrowing of the spinal canal and borderline narrowing of the bilateral neural foramina. At L4-5, the alignment abnormality and posterior retropulsion results in borderline narrowing the spinal canal. There is mild narrowing of the bilateral neural foramina. And L5-S1, no significant disc bulge or protrusion or spinal stenosis. Facet hypertrophy results in mild narrowing of the bilateral neural foramina At the remaining disc levels, no significant disc bulge or protrusion, spinal stenosis, or neural foraminal narrowing is demonstrated. The disc spaces are all preserved. Signal loss within the L4-5 and L5-S1 discs presumably reflects the vacuum formation demonstrated on recent CT. The included extraspinal soft tissues are remarkable for the presence of bilateral renal cysts Impression: Multiple vertebral body compression fracture deformities, as described above, corresponding to findings reported on recent CT scan. Diffuse marrow signal abnormality, as described. Most likely related to diffuse marrow infiltration, given recent clinical diagnosis of probable multiple myeloma. No definite findings to indicate acute marrow edema so compression fractures are presumably chronic, likely pathologic Degenerative changes, as detailed above Incidental finding bilateral renal cysts
[2018-06-11 16:00] VITALS: BP 134/82
--- NOTE | 2018-06-11 17:34 | Nephrology Progress Note ---
Assessment/Plan Problem List: (1) Monoclonal gammopathy Assessment: MM (2) Compression fx, lumbar spine (3) Anemia Assessment: MM (4) Osteoporosis of disuse (5) Urinary outflow obstruction Assessment Anemia, suspected MM corrected for hypoalbuminemia, patient has hypercalcemia mild HTN Multiple vertebral compression fracture Profound osteoporosis. Right lower lobe pulmonary parenchymal consolidation or atelectasis. nondisplaced left anterior iliac bone fracture. urinary outlet obstruction fecal impaction Plan Monroe Colace anemia kim per ortho / Onco.... procardia for HTN SQ Heparin Subjective ROS Limited/Unobtainable: No Constitutional: Reports: malaise, weakness Objective Objective Last 24 Hour Vital Signs Date Time Temp Pulse Resp B/P (MAP) Pulse Ox O2 Delivery O2 Flow Rate FiO2 06/11/18 16:00 98.6 71 18 134/82 (99) 92 06/11/18 12:00 97.6 76 19 147/85 (105) 94 06/11/18 09:16 84 137/83 06/11/18 09:00 Room Air 06/11/18 08:00 99.2 84 18 137/83 (101) 94 06/11/18 04:00 98.6 70 18 146/76 (99) 98 06/11/18 00:00 98.9 71 18 153/69 (97) 99 06/10/18 21:00 Room Air 06/10/18 20:00 98.9 71 20 131/75 (93) 96 Intake and Output 06/10/18 06/11/18 19:00 07:00 Intake Total 600 ml Output Total 800 ml 1200 ml Balance -200 ml -1200 ml Intake Oral 600 ml Output Urine Total 800 ml 1200 ml # Bowel Movements 1 1 Height (Feet): 5 Height (Inches): 7.00 Weight (Pounds): 120 General Appearance: no apparent distress, lethargic Objective no change Patrick Marino MD Jun 11, 2018 17:34
--- NOTE | 2018-06-11 19:37 | NUR ---
HAND-OFF: Report given to ANIYAH Dang.
--- NOTE | 2018-06-11 19:40 | NUR ---
NURSE NOTES: Received report from ANIYAH Cole. Patient in bed. AOX4 No signs of distress. No pain noted. Monroe catheter intact and patent, urine yellow. Needs attended to. Bed low, call light within reach.
[2018-06-11 20:00] VITALS: BP 134/80
--- NOTE | 2018-06-11 21:23 | General Progress Note ---
Assessment/Plan Problem List: (1) Compression fx, lumbar spine ICD Codes: S32.000A - Wedge compression fracture of unspecified lumbar vertebra , initial encounter for closed fracture SNOMED: 192520349 Qualifiers: Qualified Codes: S32.030A - Wedge compression fracture of third lumbar vertebra, initial encounter for closed fracture (2) Closed pelvic fracture ICD Codes: S32.9XXA - Fracture of unspecified parts of lumbosacral spine and pelvis, initial encounter for closed fracture SNOMED: 70923378 Qualifiers: Qualified Codes: S32.9XXA - Fracture of unspecified parts of lumbosacral spine and pelvis, initial encounter for closed fracture (3) Anemia ICD Codes: D64.9 - Anemia, unspecified SNOMED: 565476238 Qualifiers: (4) Osteoporosis of disuse ICD Codes: M81.8 - Other osteoporosis without current pathological fracture SNOMED: 63938568 Status: progressing Assessment/Plan bone marrow biopsy to r/o MM r/o pathological fracture r/o mutiple myeloma chronic pain Subjective ROS Limited/Unobtainable: Yes Allergies: Coded Allergies: No Known Allergies (Unverified , 03/20/18) Objective Last 24 Hour Vital Signs Date Time Temp Pulse Resp B/P (MAP) Pulse Ox O2 Delivery O2 Flow Rate FiO2 06/11/18 20:00 98.5 71 18 134/80 (98) 93 06/11/18 19:54 Room Air 06/11/18 16:00 98.6 71 18 134/82 (99) 92 06/11/18 12:00 97.6 76 19 147/85 (105) 94 06/11/18 09:16 84 137/83 06/11/18 09:00 Room Air 06/11/18 08:00 99.2 84 18 137/83 (101) 94 06/11/18 04:00 98.6 70 18 146/76 (99) 98 06/11/18 00:00 98.9 71 18 153/69 (97) 99 Intake and Output 06/10/18 06/11/18 19:00 07:00 Intake Total 600 ml Output Total 800 ml 1200 ml Balance -200 ml -1200 ml Intake Oral 600 ml Output Urine Total 800 ml 1200 ml # Bowel Movements 1 1 Height (Feet): 5 Height (Inches): 7.00 Weight (Pounds): 120 Neck: supple Cardiovascular: normal rate Respiratory/Chest: lungs clear Abdomen: soft Néstor Marrero MD Jun 11, 2018 21:23
[2018-06-12] VITALS: BP 122/64
--- NOTE | 2018-06-12 00:15 | NUR ---
NURSE NOTES: Patient's 02 sat 88%. Patient is asymtomatic. Placed on 2 L nasal cannula and placed on continuous pulse ox. Order for I.S. placed.
[2018-06-12 04:00] VITALS: BP 125/73
--- NOTE | 2018-06-12 07:29 | NUR ---
HAND-OFF: Report given to ANIYAH Vincent. Patient stable. Addendum: 06/12/18 at 0731 by GEORGE BELTRAN RN Patient was educated on use of I.S. and demonstrated use.
--- NOTE | 2018-06-12 07:30 | NUR ---
NURSE NOTES:BEDSIDE ROUNDS DONE WITH NIGHT RN(GEORGE),PATIENT IN BED,A/OX4,ROOM AIR,IV SITE PATENT,PAIN LEVEL 3/10(COMFORTABLE)PLAN OF CARE DISCUSSED,VERBALIZED UNDERSTANDING.
[2018-06-12 08:00] VITALS: BP 147/76
[2018-06-12] MEDS: Docusate 100mg cap ORAL SCH ×3 (08:50→18:43)
[2018-06-12] MEDS: Lactulose 20gm/30ml UDC ORAL SCH (08:50)
[2018-06-12] MEDS: HYDROcodone/Acetamin 5/325 tab ORAL PRN (08:51)
[2018-06-12 09:28] LABS: BASOPHILS % (AUTO) 0.8 % (0.0-2.0); HEMATOCRIT 29.6 % (37.0-47.0); HEMOGLOBIN 9.5 G/DL (12.0-16.0); LYMPHOCYTES % (AUTO) 30.3 % (20.0-45.0); MEAN CORPUSCULAR VOLUME 97 FL (80-99); MONOCYTES % (AUTO) 7.9 % (1.0-10.0); PLATELET COUNT 197 K/UL (150-450); RED BLOOD COUNT 3.04 M/UL (4.20-5.40); RED CELL DISTRIBUTION WIDTH 15.4 % (11.6-14.8); WHITE BLOOD COUNT 5.2 K/UL (4.8-10.8)
[2018-06-12 09:36] LABS: ALANINE AMINOTRANSFERASE 18 U/L (12-78); ALBUMIN 2.4 G/DL (3.4-5.0); ALBUMIN/GLOBULIN RATIO 0.3 (1.0-2.7); ALKALINE PHOSPHATASE 79 U/L (46-116); ANION GAP 8 mmol/L (5-15); ASPARTATE AMINO TRANSFERASE 19 U/L (15-37); BILIRUBIN,TOTAL 0.2 MG/DL (0.2-1.0); BLOOD UREA NITROGEN 15 mg/dL (7-18); CALCIUM 9.9 MG/DL (8.5-10.1); CARBON DIOXIDE 33 MMOL/L (21-32); CHLORIDE 96 MMOL/L (98-107); PHOSPHORUS 3.8 MG/DL (2.5-4.9); POTASSIUM 4.3 MMOL/L (3.5-5.1); SODIUM 136 MMOL/L (136-145)
[2018-06-12 12:00] VITALS: BP 121/69
--- NOTE | 2018-06-12 13:04 | Nephrology Progress Note ---
Assessment/Plan Problem List: (1) Monoclonal gammopathy Assessment: MM (2) Compression fx, lumbar spine (3) Anemia Assessment: MM (4) Osteoporosis of disuse (5) Urinary outflow obstruction Assessment Anemia, suspected MM corrected for hypoalbuminemia, patient has hypercalcemia mild HTN Multiple vertebral compression fracture Profound osteoporosis. Right lower lobe pulmonary parenchymal consolidation or atelectasis. nondisplaced left anterior iliac bone fracture. urinary outlet obstruction fecal impaction Plan [place] Colace anemia kim per ortho / Onco.... procardia for HTN SQ Heparin Subjective ROS Limited/Unobtainable: No Objective Objective Last 24 Hour Vital Signs Date Time Temp Pulse Resp B/P (MAP) Pulse Ox O2 Delivery O2 Flow Rate FiO2 06/12/18 12:00 98.8 64 16 121/69 (86) 98 06/12/18 08:51 67 147/76 06/12/18 08:00 98.7 67 16 147/76 (99) 98 06/12/18 07:30 Room Air 06/12/18 04:00 98.0 68 18 125/73 (90) 98 06/12/18 00:00 98.6 74 18 122/64 (83) 88 06/11/18 20:00 98.5 71 18 134/80 (98) 93 06/11/18 19:54 Room Air 06/11/18 16:00 98.6 71 18 134/82 (99) 92 Intake and Output 06/11/18 06/12/18 19:00 07:00 Intake Total 960 ml 620 ml Output Total 850 ml 850 ml Balance 110 ml -230 ml Intake Oral 960 ml 620 ml Output Urine Total 850 ml 850 ml # Bowel Movements 1 Laboratory Tests 06/12/18 08:50: White Blood Count 5.2, Red Blood Count 3.04L, Hemoglobin 9.5L, Hematocrit 29.6L , Mean Corpuscular Volume 97, Mean Corpuscular Hemoglobin 31.3H, Mean Corpuscular Hemoglobin Concent 32.1, Red Cell Distribution Width 15.4H, Platelet Count 197, Mean Platelet Volume 6.6, Neutrophils (%) (Auto) 59.0, Lymphocytes (%) (Auto) 30.3, Monocytes (%) (Auto) 7.9, Eosinophils (%) (Auto) 2.0, Basophils (%) (Auto) 0.8, Sodium Level 136, Potassium Level 4.3, Chloride Level 96L, Carbon Dioxide Level 33H, Anion Gap 8, Blood Urea Nitrogen 15, Creatinine 1.0, Estimat Glomerular Filtration Rate > 60, Glucose Level 97, Calcium Level 9.9, Phosphorus Level 3.8, Magnesium Level 1.8, Total Bilirubin 0.2, Aspartate Amino Transf (AST/SGOT) 19, Alanine Aminotransferase (ALT/SGPT) 18, Alkaline Phosphatase 79, Total Protein 10.9H, Albumin 2.4L, Globulin 8.5, Albumin/Globulin Ratio 0.3L Height (Feet): 5 Height (Inches): 7.00 Weight (Pounds): 120 General Appearance: no apparent distress Cardiovascular: normal rate Respiratory/Chest: lungs clear Abdomen: distended Objective no change Patrick Marino MD Jun 12, 2018 13:04
--- NOTE | 2018-06-12 14:00 | NUR ---
NURSE NOTES:PER CONVERSATION WITH MARISSA(PHYSICAL THERAPY)PATIENT REFUSED PT ACTIVITY.
--- NOTE | 2018-06-12 14:59 | NUR ---
PT Note Acknowledged order for physical therapy. Patient c/o having too much pain this PM; requests to be seen in AM.
[2018-06-12 16:00] VITALS: BP 135/66
--- NOTE | 2018-06-12 17:03 | Pulmonology Progress Note ---
Assessment/Plan Problems: (1) Compression fx, lumbar spine (2) Closed pelvic fracture (3) Severe anemia (4) Monoclonal gammopathy Assessment/Plan pain is better controlled bone marrow biopsy done, results will be available on Thursday symptomatic treatment prbc transfusion if hem less than 7 f/u oncology recommendation Subjective ROS Limited/Unobtainable: No Constitutional: Reports: no symptoms HEENT: Repors: no symptoms Allergies: Coded Allergies: No Known Allergies (Unverified , 03/20/18) Objective Last 24 Hour Vital Signs Date Time Temp Pulse Resp B/P (MAP) Pulse Ox O2 Delivery O2 Flow Rate FiO2 06/12/18 16:00 99.3 60 18 135/66 (89) 97 06/12/18 12:00 98.8 64 16 121/69 (86) 98 06/12/18 08:51 67 147/76 06/12/18 08:00 98.7 67 16 147/76 (99) 98 06/12/18 07:30 Room Air 06/12/18 04:00 98.0 68 18 125/73 (90) 98 06/12/18 00:00 98.6 74 18 122/64 (83) 88 06/11/18 20:00 98.5 71 18 134/80 (98) 93 06/11/18 19:54 Room Air Intake and Output 06/11/18 06/12/18 19:00 07:00 Intake Total 960 ml 620 ml Output Total 850 ml 850 ml Balance 110 ml -230 ml Intake Oral 960 ml 620 ml Output Urine Total 850 ml 850 ml # Bowel Movements 1 Objective General Appearance: WD/WN Lines, tubes and drains: peripheral HEENT: normocephalic, atraumatic Respiratory/Chest: chest wall non-tender, lungs clear Breasts: no masses Cardiovascular/Chest: normal peripheral pulses Abdomen: normal bowel sounds Genitourinary/Rectal: normal genital exam Laboratory Tests 06/12/18 08:50: White Blood Count 5.2, Red Blood Count 3.04L, Hemoglobin 9.5L, Hematocrit 29.6L , Mean Corpuscular Volume 97, Mean Corpuscular Hemoglobin 31.3H, Mean Corpuscular Hemoglobin Concent 32.1, Red Cell Distribution Width 15.4H, Platelet Count 197, Mean Platelet Volume 6.6, Neutrophils (%) (Auto) 59.0, Lymphocytes (%) (Auto) 30.3, Monocytes (%) (Auto) 7.9, Eosinophils (%) (Auto) 2.0, Basophils (%) (Auto) 0.8, Sodium Level 136, Potassium Level 4.3, Chloride Level 96L, Carbon Dioxide Level 33H, Anion Gap 8, Blood Urea Nitrogen 15, Creatinine 1.0, Estimat Glomerular Filtration Rate > 60, Glucose Level 97, Calcium Level 9.9, Phosphorus Level 3.8, Magnesium Level 1.8, Total Bilirubin 0.2, Aspartate Amino Transf (AST/SGOT) 19, Alanine Aminotransferase (ALT/SGPT) 18, Alkaline Phosphatase 79, Total Protein 10.9H, Albumin 2.4L, Globulin 8.5, Albumin/Globulin Ratio 0.3L Current Medications Medications (Trade) Dose Ordered Sig/Rtavis Route PRN Reason Start Time Stop Time Status Last Admin Dose Admin Acetaminophen (Tylenol) 650 mg Q4H PRN ORAL Mild Pain/Temp > 100.5 06/08/18 21:15 07/08/18 21:14 Acetaminophen/ Hydrocodone Bitart ([place] 5/325) 1 tab Q4H PRN ORAL Moderate Pain (Pain Scale 4-6) 06/12/18 11:45 06/19/18 11:44 Docusate Sodium (Colace) 100 mg THREE TIMES A DAY ORAL 06/09/18 18:00 07/09/18 17:59 06/12/18 12:20 Lactulose (Cephulac) 30 gm DAILY ORAL 06/12/18 09:00 07/12/18 08:59 06/12/18 08:50 Morphine Sulfate (Morphine Sulfate) 2 mg Q4H PRN IVP Severe Pain (Pain Scale 7-10) 06/12/18 11:45 06/19/18 11:44 Nifedipine (Procardia XL) 30 mg DAILY ORAL 06/10/18 09:00 07/10/18 08:59 06/12/18 08:51 Claudia Trinidad MD Jun 12, 2018 17:03
--- NOTE | 2018-06-12 19:10 | NUR ---
HAND-OFF: Report given to GEORGE DILL.PATIENT STABLE
[2018-06-12] MEDS ORDERED: Fleet's Enema 133ml RECTAL PRN (19:15)
[2018-06-12 20:00] VITALS: BP 127/80
[2018-06-12] MEDS ORDERED: Magnesium Citrate Liq Btl ORAL SCH (20:00)
[2018-06-12] MEDS: Morphine Sulfate 2mg/ml Inj(IV/IM USE ONLY) IVP PRN (20:40)
--- NOTE | 2018-06-12 21:22 | General Progress Note ---
Assessment/Plan Problem List: (1) Compression fx, lumbar spine ICD Codes: S32.000A - Wedge compression fracture of unspecified lumbar vertebra , initial encounter for closed fracture SNOMED: 158853485 Qualifiers: Qualified Codes: S32.030A - Wedge compression fracture of third lumbar vertebra, initial encounter for closed fracture (2) Closed pelvic fracture ICD Codes: S32.9XXA - Fracture of unspecified parts of lumbosacral spine and pelvis, initial encounter for closed fracture SNOMED: 70256561 Qualifiers: Qualified Codes: S32.9XXA - Fracture of unspecified parts of lumbosacral spine and pelvis, initial encounter for closed fracture (3) Anemia ICD Codes: D64.9 - Anemia, unspecified SNOMED: 428582786 Qualifiers: (4) Osteoporosis of disuse ICD Codes: M81.8 - Other osteoporosis without current pathological fracture SNOMED: 61293421 Status: progressing Assessment/Plan generalized pain afebrile spinal fracture neurologically intact r/o pathological fracture r/o mutiple myeloma chronic pain Subjective ROS Limited/Unobtainable: Yes Allergies: Coded Allergies: No Known Allergies (Unverified , 03/20/18) Objective Last 24 Hour Vital Signs Date Time Temp Pulse Resp B/P (MAP) Pulse Ox O2 Delivery O2 Flow Rate FiO2 06/12/18 16:00 99.3 60 18 135/66 (89) 97 06/12/18 12:00 98.8 64 16 121/69 (86) 98 06/12/18 08:51 67 147/76 06/12/18 08:00 98.7 67 16 147/76 (99) 98 06/12/18 07:30 Room Air 06/12/18 04:00 98.0 68 18 125/73 (90) 98 06/12/18 00:00 98.6 74 18 122/64 (83) 88 Intake and Output 06/11/18 06/12/18 19:00 07:00 Intake Total 960 ml 620 ml Output Total 850 ml 850 ml Balance 110 ml -230 ml Intake Oral 960 ml 620 ml Output Urine Total 850 ml 850 ml # Bowel Movements 1 Laboratory Tests 06/12/18 08:50: White Blood Count 5.2, Red Blood Count 3.04L, Hemoglobin 9.5L, Hematocrit 29.6L , Mean Corpuscular Volume 97, Mean Corpuscular Hemoglobin 31.3H, Mean Corpuscular Hemoglobin Concent 32.1, Red Cell Distribution Width 15.4H, Platelet Count 197, Mean Platelet Volume 6.6, Neutrophils (%) (Auto) 59.0, Lymphocytes (%) (Auto) 30.3, Monocytes (%) (Auto) 7.9, Eosinophils (%) (Auto) 2.0, Basophils (%) (Auto) 0.8, Sodium Level 136, Potassium Level 4.3, Chloride Level 96L, Carbon Dioxide Level 33H, Anion Gap 8, Blood Urea Nitrogen 15, Creatinine 1.0, Estimat Glomerular Filtration Rate > 60, Glucose Level 97, Calcium Level 9.9, Phosphorus Level 3.8, Magnesium Level 1.8, Total Bilirubin 0.2, Aspartate Amino Transf (AST/SGOT) 19, Alanine Aminotransferase (ALT/SGPT) 18, Alkaline Phosphatase 79, Total Protein 10.9H, Albumin 2.4L, Globulin 8.5, Albumin/Globulin Ratio 0.3L Height (Feet): 5 Height (Inches): 7.00 Weight (Pounds): 120 Neck: supple Cardiovascular: normal peripheral pulses Respiratory/Chest: lungs clear Abdomen: soft Néstor Marrero MD Jun 12, 2018 21:22
[2018-06-13] VITALS: BP 129/66
[2018-06-13 04:00] VITALS: BP 124/72
[2018-06-13] MEDS: Morphine Sulfate 2mg/ml Inj(IV/IM USE ONLY) IVP PRN ×3 (04:52→21:23)
--- NOTE | 2018-06-13 07:45 | NUR ---
NURSE NOTES: Received report from Laurence DILL. Patient is awake alert and oriented x4, no acute distress noted. Reporting pain in left hip, will medicate per order when pain medication due. SCD's in place. [place] to gravity drainage draining clear, yellow urine. IV intact. Patient updated on plan of care. Fall precautions maintained. Side rails upx3, bed low and locked, call light in reach. Will continue to monitor.
--- NOTE | 2018-06-13 07:46 | NUR ---
HAND-OFF: Report given to ANIYAH Wilson. Patient stable.
[2018-06-13 08:00] VITALS: BP 154/84
[2018-06-13] MEDS: Lactulose 20gm/30ml UDC ORAL SCH (09:00)
[2018-06-13] MEDS: Docusate 100mg cap ORAL SCH ×3 (09:00→17:45)
--- NOTE | 2018-06-13 11:25 | Nephrology Progress Note ---
Assessment/Plan Problem List: (1) Monoclonal gammopathy Assessment: MM (2) Compression fx, lumbar spine (3) Anemia Assessment: MM (4) Osteoporosis of disuse (5) Urinary outflow obstruction Assessment Anemia, suspected MM corrected for hypoalbuminemia, patient has hypercalcemia mild HTN Multiple vertebral compression fracture Profound osteoporosis. Right lower lobe pulmonary parenchymal consolidation or atelectasis. nondisplaced left anterior iliac bone fracture. urinary outlet obstruction fecal impaction Plan [place] Colace anemia kim per ortho / Onco.... procardia for HTN SQ Heparin Subjective ROS Limited/Unobtainable: No Objective Objective Last 24 Hour Vital Signs Date Time Temp Pulse Resp B/P (MAP) Pulse Ox O2 Delivery O2 Flow Rate FiO2 06/13/18 10:34 98.5 06/13/18 08:27 73 154/84 06/13/18 08:00 98.5 73 20 154/84 (107) 96 06/13/18 04:00 98.4 67 18 124/72 (89) 94 06/13/18 00:00 97.9 74 18 129/66 (87) 94 06/12/18 21:00 Room Air 06/12/18 20:00 98.5 79 18 127/80 (96) 97 06/12/18 16:00 99.3 60 18 135/66 (89) 97 06/12/18 12:00 98.8 64 16 121/69 (86) 98 Intake and Output 06/12/18 06/13/18 18:59 06:59 Intake Total 918 ml 900 ml Output Total 900 ml 1200 ml Balance 18 ml -300 ml Intake Oral 918 ml 900 ml Output Urine Total 900 ml 1200 ml Height (Feet): 5 Height (Inches): 7.00 Weight (Pounds): 120 General Appearance: no apparent distress Objective no change Patrick Marino MD Jun 13, 2018 11:25
--- NOTE | 2018-06-13 11:26 | General Progress Note ---
Assessment/Plan Assessment/Plan (1) Lumbar Radiculopathy (2) Multilevel lumbar compression fx (3) Pelvic pain (4) Left iliac crest fx Will be continued on [place] and Morphine. D/w Dr. Vu and he concurred. Subjective Date patient seen: Jun 13, 2018 Time patient seen: 10:30 - am Constitutional: Reports: weakness HEENT: Reports: no symptoms Cardiovascular: Reports: no symptoms Respiratory: Reports: no symptoms Gastrointestinal/Abdominal: Reports: no symptoms Genitourinary: Reports: no symptoms Neurologic/Psychiatric: Reports: weakness Endocrine: Reports: no symptoms Hematologic/Lymphatic: Reports: no symptoms Allergies: Coded Allergies: No Known Allergies (Unverified , 03/20/18) Subjective Patient continues to c/o pain which has been tolerated on the [place] and Morphine 2mg IV Q4H PRN pain. MRI reviewed. Objective Last 24 Hour Vital Signs Date Time Temp Pulse Resp B/P (MAP) Pulse Ox O2 Delivery O2 Flow Rate FiO2 06/13/18 10:34 98.5 06/13/18 08:27 73 154/84 06/13/18 08:00 98.5 73 20 154/84 (107) 96 06/13/18 04:00 98.4 67 18 124/72 (89) 94 06/13/18 00:00 97.9 74 18 129/66 (87) 94 06/12/18 21:00 Room Air 06/12/18 20:00 98.5 79 18 127/80 (96) 97 06/12/18 16:00 99.3 60 18 135/66 (89) 97 06/12/18 12:00 98.8 64 16 121/69 (86) 98 Intake and Output 06/12/18 06/13/18 18:59 06:59 Intake Total 918 ml 900 ml Output Total 900 ml 1200 ml Balance 18 ml -300 ml Intake Oral 918 ml 900 ml Output Urine Total 900 ml 1200 ml Height (Feet): 5 Height (Inches): 7.00 Weight (Pounds): 120 General Appearance: no apparent distress, alert EENT: PERRL/EOMI, normal ENT inspection Neck: non-tender, normal alignment Cardiovascular: normal rate, regular rhythm Respiratory/Chest: lungs clear, normal breath sounds Abdomen: non tender, soft Extremities: non-tender Edema: trace edema Neurologic: alert, oriented x 3 Skin: normal pigmentation Objective Procedure: MRI L Spine no Contrast Impression: Multiple vertebral body compression fracture deformities, as described above, corresponding to findings reported on recent CT scan. Diffuse marrow signal abnormality, as described. Most likely related to diffuse marrow infiltration, given recent clinical diagnosis of probable multiple myeloma. No definite findings to indicate acute marrow edema so compression fractures are presumably chronic, likely pathologic Degenerative changes, as detailed above Nils Bledsoe Jun 13, 2018 11:26
--- NOTE | 2018-06-13 11:27 | NUR ---
PT Note Attempted to see patient for eval but CN requested to defer PT at this time due to patient having diarrhea.
--- NOTE | 2018-06-13 11:49 | NUR ---
RD ASSESSMENT & RECOMMENDATIONS SEE CARE ACTIVITY FOR COMPLETE ASSESSMENT DAILY ESTIMATED NEEDS: Needs based on general 58kg 25-30 kcals/kg 8299-5048 total kcals .8-1 g protein/kg 46-58 g total protein 25-30 mL/kg 4106-7340 total fluid mLs NUTRITION DIAGNOSIS: Altered nutrition related lab values r/t clinical status as evidenced by Low Hgb (9.5). PO DIET RECOMMENDATIONS: Regular, texture as tolerated ADDITIONAL RECOMMENDATIONS: 1) Obtain a standing scale wt as able -> Or calibrated bed scale wts 2) Updated lytes, replete as needed 3) Bowel regimen
[2018-06-13 12:00] VITALS: BP 133/75
--- NOTE | 2018-06-13 15:41 | NUR ---
PT Note Patient's still with diarrhea; requests to defer PT at this time.
[2018-06-13 16:00] VITALS: BP 131/74
--- NOTE | 2018-06-13 16:13 | General Progress Note ---
Assessment/Plan Assessment/Plan Assessment and Recs # Multiple myeloma, IgA subtype, donnie light chain restriction, versus other similar monolonal neoplasm such as [place]s she presents with back pain, as well as compression fractures, lesions in the cranium, which is new for the patient, iliac lesions, this is all potentially suacute to chronic. Fractures have been confirmed by Mri imaging --> Myeloma evaluation has been ordered and preliminary results shows HIGH iGA, hypercalcemia, bony lesions, however spep and upep to follow --> s/p bone marrow biopsy on 06/11/18 to help illucidate myeloma subtype, cytogenetics (gene mutations) which can potentially give us information in regards to prognosis --> If myleoma, patients given her performance status can do very well, average lifespan >5 years with potential treatment --> also consider hospice/pallaitive care for symptom management # Anemia of chronic disease is very likely related to multiple myeloma --> Anemia workup has been ordered, rule out gi bleed --> No evidence of hemolysis is noted, peripheral smear has been reviewed. --> Hgb goal >7. Transfuse prn. --> Epogen or iron at this time is not particularly indicated --> Medications have been reviewed --> evaluate with Gi team prn --> transfuse if hgb is < 7 (will trend CBC daily) # Leukopenia - could be related to myleoma --> hepatitis and hiv results are negative --> again can benefit at some point with a bone marrow biopsy # Fractures of her back and iliac wing, burst compression fracture of L5, anterior wedge compression fracture fracture of L3 and mild anterior wedge compression fracture of L1. s/p treatment with norco --> seen by orthopedics --> pain management recs appreciated # Mechanical trip and fall approximately one month ago. --> Patient denies hitting her head or having loss of consciousness. --> per ortho # Anxiety, generalized The timing of this note does not necessarily reflect the time of the patient was seen. Greatly appreciate consultation! Subjective Constitutional: Denies: no symptoms, chills, diaphoresis, fever, malaise, weakness, other HEENT: Denies: no symptoms, eye pain, blurred vision, tearing, double vision, ear pain, ear discharge, nose pain, nose congestion, throat pain, throat swelling, mouth pain, mouth swelling, other Respiratory: Denies: no symptoms, cough, orthopnea, shortness of breath, SOB with excertion, SOB at rest, sputum, stridor, wheezing, other Gastrointestinal/Abdominal: Denies: no symptoms, abdomen distended, abdominal pain, black stools, tarry stools, blood in stool, constipated, diarrhea, difficulty swallowing, nausea, poor appetite, poor fluid intake, rectal bleeding , vomiting, other Genitourinary: Denies: no symptoms, burning, discharge, frequency, flank pain, hematuria, incontinence, pain, urgency, other Neurologic/Psychiatric: Denies: no symptoms, anxiety, depressed, emotional problems, headache, numbness, paresthesia, pre-existing deficit, seizure, tingling, tremors, weakness, other Endocrine: Denies: no symptoms, excessive sweating, flushing, intolerance to cold, intolerance to heat, increased hunger, increased thirst, increased urine, unexplained weight gain, unexplained weight loss, other Hematologic/Lymphatic: Denies: no symptoms, anemia, easy bleeding, easy bruising, other Allergies: Coded Allergies: No Known Allergies (Unverified , 03/20/18) Subjective 06/10: no events, continues to be in pain, dw her she may need bone marrow biopsy , labs reviewed 06/11: s/p bone marrow biopsy, no fevers or chills, feelijng better, to get mri today 06/13: pain has somehwat improved, getting norco on prn basis, no fevers or chills reproted Objective Last 24 Hour Vital Signs Date Time Temp Pulse Resp B/P (MAP) Pulse Ox O2 Delivery O2 Flow Rate FiO2 06/13/18 16:00 97.1 80 21 131/74 (93) 97 06/13/18 12:00 98.7 72 19 133/75 (94) 95 06/13/18 10:34 98.5 06/13/18 09:00 Room Air 06/13/18 08:27 73 154/84 06/13/18 08:00 98.5 73 20 154/84 (107) 96 06/13/18 04:00 98.4 67 18 124/72 (89) 94 06/13/18 00:00 97.9 74 18 129/66 (87) 94 06/12/18 21:00 Room Air 06/12/18 20:00 98.5 79 18 127/80 (96) 97 Intake and Output 06/12/18 06/13/18 19:00 07:00 Intake Total 918 ml 900 ml Output Total 900 ml 1200 ml Balance 18 ml -300 ml Intake Oral 918 ml 900 ml Output Urine Total 900 ml 1200 ml Height (Feet): 5 Height (Inches): 7.00 Weight (Pounds): 120 Objective PE: Vitals: reviewed General Appearance: NAD HEENT: normocephalic, atraumatic Neck: non-tender, normal alignment Respiratory/Chest: nromal breath sounds bilaterally Cardiovascular/Chest: normal peripheral pulses, normal rate Abdomen: normal bowel sounds, soft, nontender Extremities: normal range of motion Neuro: difficult to perform given leg pain, back pain Dmitriy Freed MD Jun 13, 2018 16:13
--- NOTE | 2018-06-13 18:00 | NUR ---
NURSE NOTES: Patient had diarrhea x3 during my shift following mag citrate administration. Stool softeners held per order. Patient not reporting any nausea/vomiting or stomach upset. Patient appears to be feeling better after having BM. Will continue to monitor.
--- NOTE | 2018-06-13 19:30 | NUR ---
HAND-OFF: Report given to Laurence DILL. Patient is in stable condition.
--- NOTE | 2018-06-13 19:50 | NUR ---
NURSE NOTES: Received report from ANIYAH Wilson. Patient in bed, aox4. No pain noted. Pain 9/10 lower back and left hip. Requesting pain medication be given before sleep. IV site patent, bed low, call light within reach.
[2018-06-13 20:00] VITALS: BP 135/70
--- NOTE | 2018-06-13 21:40 | General Progress Note ---
Assessment/Plan Problem List: (1) Compression fx, lumbar spine ICD Codes: S32.000A - Wedge compression fracture of unspecified lumbar vertebra , initial encounter for closed fracture SNOMED: 091215927 Qualifiers: Qualified Codes: S32.030A - Wedge compression fracture of third lumbar vertebra, initial encounter for closed fracture (2) Closed pelvic fracture ICD Codes: S32.9XXA - Fracture of unspecified parts of lumbosacral spine and pelvis, initial encounter for closed fracture SNOMED: 37326311 Qualifiers: Qualified Codes: S32.9XXA - Fracture of unspecified parts of lumbosacral spine and pelvis, initial encounter for closed fracture (3) Anemia ICD Codes: D64.9 - Anemia, unspecified SNOMED: 273791022 Qualifiers: (4) Osteoporosis of disuse ICD Codes: M81.8 - Other osteoporosis without current pathological fracture SNOMED: 68630877 Status: progressing Assessment/Plan needs snf for close moniter awaiting bone marrow biopsy results spinal fracture neurologically intact r/o pathological fracture r/o mutiple myeloma chronic pain Subjective ROS Limited/Unobtainable: Yes Allergies: Coded Allergies: No Known Allergies (Unverified , 03/20/18) Objective Last 24 Hour Vital Signs Date Time Temp Pulse Resp B/P (MAP) Pulse Ox O2 Delivery O2 Flow Rate FiO2 06/13/18 16:00 97.1 80 21 131/74 (93) 97 06/13/18 12:00 98.7 72 19 133/75 (94) 95 06/13/18 10:34 98.5 06/13/18 09:00 Room Air 06/13/18 08:27 73 154/84 06/13/18 08:00 98.5 73 20 154/84 (107) 96 06/13/18 04:00 98.4 67 18 124/72 (89) 94 06/13/18 00:00 97.9 74 18 129/66 (87) 94 Intake and Output 06/12/18 06/13/18 19:00 07:00 Intake Total 918 ml 900 ml Output Total 900 ml 1200 ml Balance 18 ml -300 ml Intake Oral 918 ml 900 ml Output Urine Total 900 ml 1200 ml Height (Feet): 5 Height (Inches): 7.00 Weight (Pounds): 120 EENT: PERRL/EOMI Cardiovascular: regular rhythm Respiratory/Chest: lungs clear Néstor Marrero MD Jun 13, 2018 21:40
[2018-06-14] VITALS (7 sets, daily range): BP systolic 116–135; BP diastolic 43–80
--- NOTE | 2018-06-14 07:30 | NUR ---
NURSE NOTES: Patient is in bed awake and able to verbalize needs. Patient is stable and complains of pain at this time, will administer medication as ordered. Patient encouraged to use call light for assistance, verbalized understanding. Patient is good spirits with call light within reach. Will continue to monitor.
--- NOTE | 2018-06-14 07:50 | NUR ---
HAND-OFF: Report given to ANIYAH Harris. Patient stable.
[2018-06-14] MEDS: Docusate 100mg cap ORAL SCH ×3 (08:59→18:10)
[2018-06-14] MEDS: Lactulose 20gm/30ml UDC ORAL SCH (08:59)
[2018-06-14] MEDS: HYDROcodone/Acetamin 5/325 tab ORAL PRN ×2 (09:00→20:31)
--- NOTE | 2018-06-14 09:08 | General Progress Note ---
Assessment/Plan Assessment/Plan (1) Lumbar Radiculopathy (2) Multilevel lumbar compression fx (3) Pelvic pain (4) Left iliac crest fx (5) Multiple Myeloma Pt will be continued on Surveyor. We will discontinue Morphine. D/w Dr. Vu and he concurred. Subjective Date patient seen: Jun 14, 2018 Time patient seen: 07:30 - am Constitutional: Reports: weakness HEENT: Reports: no symptoms Cardiovascular: Reports: no symptoms Respiratory: Reports: no symptoms Gastrointestinal/Abdominal: Reports: no symptoms Genitourinary: Reports: no symptoms Neurologic/Psychiatric: Reports: no symptoms Endocrine: Reports: no symptoms Hematologic/Lymphatic: Reports: no symptoms Allergies: Coded Allergies: No Known Allergies (Unverified , 03/20/18) Subjective Patient is in bed reports that the pain has been tolerated on the Surveyor. D/w Patient about stopping the Morphine she seems to understand. Objective Last 24 Hour Vital Signs Date Time Temp Pulse Resp B/P (MAP) Pulse Ox O2 Delivery O2 Flow Rate FiO2 06/14/18 09:06 78 135/80 06/14/18 04:00 98.0 78 18 117/43 (67) 93 06/14/18 00:00 98.6 78 18 116/71 (86) 93 06/13/18 21:00 Room Air 06/13/18 20:00 98.2 71 18 135/70 (91) 96 06/13/18 16:00 97.1 80 21 131/74 (93) 97 06/13/18 12:00 98.7 72 19 133/75 (94) 95 06/13/18 10:34 98.5 Intake and Output 06/13/18 06/14/18 19:00 07:00 Intake Total 780 ml Output Total 1200 ml 1000 ml Balance -420 ml -1000 ml Intake Oral 780 ml Output Urine Total 1200 ml 1000 ml # Bowel Movements 3 Height (Feet): 5 Height (Inches): 7.00 Weight (Pounds): 120 General Appearance: no apparent distress, alert EENT: PERRL/EOMI, normal ENT inspection Neck: non-tender, normal alignment Cardiovascular: normal rate, regular rhythm Respiratory/Chest: lungs clear, normal breath sounds Abdomen: non tender, soft Extremities: non-tender Edema: trace edema Neurologic: alert, oriented x 3 Skin: warm/dry ZednerNils N. PA Jun 14, 2018 09:08
--- NOTE | 2018-06-14 10:31 | NUR ---
DISCHARGE PLANNING DISCHARGE ORDER NOTED FAXED CLINICALS TO [facility] T: [phone]
--- NOTE | 2018-06-14 11:00 | NUR ---
NURSE NOTES: Spoke to Dr. Marrero on the phone. Received new orders to cancel D/C today. D/C planning started. Will continue to monitor patient.
--- NOTE | 2018-06-14 12:48 | Pulmonology Progress Note ---
Assessment/Plan Problems: (1) Compression fx, lumbar spine (2) Closed pelvic fracture (3) Severe anemia (4) Monoclonal gammopathy Assessment/Plan pain is better controlled bone marrow biopsy done, Positive for MM symptomatic treatment prbc transfusion if hem less than 7 f/u oncology recommendation dc planning Subjective ROS Limited/Unobtainable: No Constitutional: Reports: no symptoms HEENT: Repors: no symptoms Respiratory: Reports: no symptoms Allergies: Coded Allergies: No Known Allergies (Unverified , 03/20/18) Objective Last 24 Hour Vital Signs Date Time Temp Pulse Resp B/P (MAP) Pulse Ox O2 Delivery O2 Flow Rate FiO2 06/14/18 12:00 98.8 79 20 123/67 (85) 96 06/14/18 09:06 78 135/80 06/14/18 09:00 78 135/80 (98) 06/14/18 09:00 Room Air 06/14/18 08:00 98.4 78 20 119/73 (88) 94 06/14/18 04:00 98.0 78 18 117/43 (67) 93 06/14/18 00:00 98.6 78 18 116/71 (86) 93 06/13/18 21:00 Room Air 06/13/18 20:00 98.2 71 18 135/70 (91) 96 06/13/18 16:00 97.1 80 21 131/74 (93) 97 Intake and Output 06/13/18 06/14/18 18:59 06:59 Intake Total 780 ml Output Total 1200 ml 1000 ml Balance -420 ml -1000 ml Intake Oral 780 ml Output Urine Total 1200 ml 1000 ml # Bowel Movements 3 Objective General Appearance: WD/WN Lines, tubes and drains: peripheral HEENT: normocephalic, atraumatic Respiratory/Chest: chest wall non-tender, lungs clear Breasts: no masses Cardiovascular/Chest: normal peripheral pulses Abdomen: normal bowel sounds Genitourinary/Rectal: normal genital exam Current Medications Medications (Trade) Dose Ordered Sig/Travis Route PRN Reason Start Time Stop Time Status Last Admin Dose Admin Acetaminophen (Tylenol) 650 mg Q4H PRN ORAL Mild Pain/Temp > 100.5 06/08/18 21:15 07/08/18 21:14 Acetaminophen/ Hydrocodone Bitart ([place] 5/325) 1 tab Q4H PRN ORAL Moderate Pain (Pain Scale 4-6) 06/12/18 11:45 06/19/18 11:44 06/14/18 09:00 Docusate Sodium (Colace) 100 mg THREE TIMES A DAY ORAL 06/09/18 18:00 07/09/18 17:59 06/14/18 12:15 Lactulose (Cephulac) 30 gm DAILY ORAL 06/12/18 09:00 07/12/18 08:59 06/14/18 08:59 Nifedipine (Procardia XL) 30 mg DAILY ORAL 06/10/18 09:00 07/10/18 08:59 06/14/18 09:06 Sodium Phosphate (Fleet's Sodium Phosl Enema) 133 ml DAILY PRN RECTAL Constipation 06/12/18 19:15 07/12/18 19:14 Claudia Trinidad MD Jun 14, 2018 12:48
[2018-06-14] MEDS ORDERED: PROCARDIA XL30 MG ORAL (12:53)
[2018-06-14] MEDS ORDERED: NORCO 5-325 TA1 EACH ORAL (12:53)
--- NOTE | 2018-06-14 13:12 | Nephrology Progress Note ---
Assessment/Plan Problem List: (1) Monoclonal gammopathy Assessment: MM (2) Compression fx, lumbar spine (3) Anemia Assessment: MM (4) Osteoporosis of disuse (5) Urinary outflow obstruction Assessment Anemia, suspected MM corrected for hypoalbuminemia, patient has hypercalcemia mild HTN Multiple vertebral compression fracture Profound osteoporosis. Right lower lobe pulmonary parenchymal consolidation or atelectasis. nondisplaced left anterior iliac bone fracture. urinary outlet obstruction fecal impaction Plan [place] Colace anemia kim per ortho / Onco.... procardia for HTN SQ Heparin Subjective ROS Limited/Unobtainable: No Constitutional: Reports: malaise Objective Objective Last 24 Hour Vital Signs Date Time Temp Pulse Resp B/P (MAP) Pulse Ox O2 Delivery O2 Flow Rate FiO2 06/14/18 12:00 98.8 79 20 123/67 (85) 96 06/14/18 09:06 78 135/80 06/14/18 09:00 78 135/80 (98) 06/14/18 09:00 Room Air 06/14/18 08:00 98.4 78 20 119/73 (88) 94 06/14/18 04:00 98.0 78 18 117/43 (67) 93 06/14/18 00:00 98.6 78 18 116/71 (86) 93 06/13/18 21:00 Room Air 06/13/18 20:00 98.2 71 18 135/70 (91) 96 06/13/18 16:00 97.1 80 21 131/74 (93) 97 Intake and Output 06/13/18 06/14/18 18:59 06:59 Intake Total 780 ml Output Total 1200 ml 1000 ml Balance -420 ml -1000 ml Intake Oral 780 ml Output Urine Total 1200 ml 1000 ml # Bowel Movements 3 Height (Feet): 5 Height (Inches): 7.00 Weight (Pounds): 120 General Appearance: no apparent distress Objective no change Patrick Marino MD Jun 14, 2018 13:12
--- NOTE | 2018-06-14 13:30 | NUR ---
NURSE NOTES: Reported to Dr. Triindad that patient spoke to Dr. Marrero and arranged discharge for tomorrow. Dr. Trinidad changed discharge orders for tomorrow instead of today.
--- NOTE | 2018-06-14 16:40 | General Progress Note ---
Assessment/Plan Assessment: Assessment and Recs # Multiple myeloma, IgA subtype, donnie light chain restriction, versus other similar monolonal neoplasm such as waldenstroms she presents with back pain, as well as compression fractures, lesions in the cranium, which is new for the patient, iliac lesions, this is all potentially suacute to chronic. Fractures have been confirmed by Mri imaging --> Myeloma evaluation has been ordered and preliminary results shows HIGH iGA, hypercalcemia, bony lesions, however spep and upep to follow --> s/p bone marrow biopsy on 06/11/18 to help illucidate myeloma subtype, cytogenetics (gene mutations) which can potentially give us information in regards to prognosis --> If myleoma, patients given her performance status can do very well, average lifespan >5 years with potential treatment --> also consider hospice/pallaitive care for symptom management, appreciate recs # Anemia of chronic disease is very likely related to multiple myeloma --> Anemia workup has been ordered, rule out gi bleed --> No evidence of hemolysis is noted, peripheral smear has been reviewed. --> Hgb goal >7. Transfuse prn. --> Epogen or iron at this time is not particularly indicated --> Medications have been reviewed --> evaluate with Gi team prn --> transfuse if hgb is < 7 (will trend CBC daily) # Leukopenia - could be related to myleoma --> hepatitis and hiv results are negative --> again can benefit at some point with a bone marrow biopsy # Fractures of her back and iliac wing, burst compression fracture of L5, anterior wedge compression fracture fracture of L3 and mild anterior wedge compression fracture of L1. s/p treatment with norco --> seen by orthopedics --> pain management recs appreciated # Mechanical trip and fall approximately one month ago. --> Patient denies hitting her head or having loss of consciousness. --> per ortho # Anxiety, generalized The timing of this note does not necessarily reflect the time of the patient was seen. Greatly appreciate consultation! Subjective Constitutional: Denies: no symptoms, chills, diaphoresis, fever, malaise, weakness, other Respiratory: Denies: no symptoms, cough, orthopnea, shortness of breath, SOB with excertion, SOB at rest, sputum, stridor, wheezing, other Gastrointestinal/Abdominal: Denies: no symptoms, abdomen distended, abdominal pain, black stools, tarry stools, blood in stool, constipated, diarrhea, difficulty swallowing, nausea, poor appetite, poor fluid intake, rectal bleeding , vomiting, other Genitourinary: Denies: no symptoms, burning, discharge, frequency, flank pain, hematuria, incontinence, pain, urgency, other Neurologic/Psychiatric: Denies: no symptoms, anxiety, depressed, emotional problems, headache, numbness, paresthesia, pre-existing deficit, seizure, tingling, tremors, weakness, other Endocrine: Denies: no symptoms, excessive sweating, flushing, intolerance to cold, intolerance to heat, increased hunger, increased thirst, increased urine, unexplained weight gain, unexplained weight loss, other Hematologic/Lymphatic: Denies: no symptoms, anemia, easy bleeding, easy bruising, other Allergies: Coded Allergies: No Known Allergies (Unverified , 03/20/18) Subjective 06/10: no events, continues to be in pain, dw her she may need bone marrow biopsy , labs reviewed 06/11: s/p bone marrow biopsy, no fevers or chills, feelijng better, to get mri today 06/13: pain has somehwat improved, getting norco on prn basis, no fevers or chills reproted 06/14: feeling better, wants to be discharged and is stable for it, bmbx shows mm Objective Last 24 Hour Vital Signs Date Time Temp Pulse Resp B/P (MAP) Pulse Ox O2 Delivery O2 Flow Rate FiO2 06/14/18 12:00 98.8 79 20 123/67 (85) 96 06/14/18 09:06 78 135/80 06/14/18 09:00 78 135/80 (98) 06/14/18 09:00 Room Air 06/14/18 08:00 98.4 78 20 119/73 (88) 94 06/14/18 04:00 98.0 78 18 117/43 (67) 93 06/14/18 00:00 98.6 78 18 116/71 (86) 93 06/13/18 21:00 Room Air 06/13/18 20:00 98.2 71 18 135/70 (91) 96 Intake and Output 06/13/18 06/14/18 18:59 06:59 Intake Total 780 ml Output Total 1200 ml 1000 ml Balance -420 ml -1000 ml Intake Oral 780 ml Output Urine Total 1200 ml 1000 ml # Bowel Movements 3 Height (Feet): 5 Height (Inches): 7.00 Weight (Pounds): 120 Objective PE: Vitals: reviewed General Appearance: NAD HEENT: normocephalic, atraumatic Neck: non-tender, normal alignment Respiratory/Chest: nromal breath sounds bilaterally Cardiovascular/Chest: normal peripheral pulses, normal rate Abdomen: normal bowel sounds, soft, nontender Extremities: normal range of motion Neuro: difficult to perform given leg pain, back pain Dmitriy Freed MD Jun 14, 2018 16:40
--- NOTE | 2018-06-14 19:13 | NUR ---
HAND-OFF: Report given to Laurence DILL. Patient is stable.
--- NOTE | 2018-06-14 21:12 | NUR ---
NURSE NOTES: patient pain level 9/10 2 hours after [place] 5/325 was given; notified Dr Garcia no response; called Dr Vu's office; recved order from Dr. Vu for morphine; 2 mg q 4 for severe pain; order placed
--- NOTE | 2018-06-14 21:32 | NUR ---
NURSE NOTES: RECVD PT FROM DAY SHIFT NURSE; PT RESTING IN BED A/O X4; IN GOOD SPIRITS; VSS; NO S/S OF ACUTE DISTRESS; PT STATES PAIN WHEN CHANGING POSITION; PAIN IN LEFT HIP; NORCO GIVEN; VALDEZ IN PLACE DRAINING BY GRAVITY; YELLOW URINE; IV INTACT; FALL PRECAUTIONS IN PLACE; SIGN AT DOOR; BED AT LOWEST POSTION AND LOCKED; CALL LIGHT AND BEDSIDE TABLE AT REACH; CANE AND BEDSIDE COMODE AT BEDSIDE.
--- NOTE | 2018-06-14 21:45 | General Progress Note ---
Assessment/Plan Problem List: (1) Compression fx, lumbar spine ICD Codes: S32.000A - Wedge compression fracture of unspecified lumbar vertebra , initial encounter for closed fracture SNOMED: 446623160 Qualifiers: Qualified Codes: S32.030A - Wedge compression fracture of third lumbar vertebra, initial encounter for closed fracture (2) Closed pelvic fracture ICD Codes: S32.9XXA - Fracture of unspecified parts of lumbosacral spine and pelvis, initial encounter for closed fracture SNOMED: 25218795 Qualifiers: Qualified Codes: S32.9XXA - Fracture of unspecified parts of lumbosacral spine and pelvis, initial encounter for closed fracture (3) Anemia ICD Codes: D64.9 - Anemia, unspecified SNOMED: 306591157 Qualifiers: (4) Osteoporosis of disuse ICD Codes: M81.8 - Other osteoporosis without current pathological fracture SNOMED: 19596072 Status: progressing Assessment: needs snf for close moniter awaiting bone marrow biopsy results spinal fracture neurologically intact r/o pathological fracture r/o mutiple myeloma chronic pain Plan: needs snf bone marrow biopsy per dr baugh is positive for mutiple myeloma needs pt/ot pathaological fractures afebrile wt loss cachexia azotemia anemia Subjective ROS Limited/Unobtainable: Yes Allergies: Coded Allergies: No Known Allergies (Unverified , 03/20/18) Objective Last 24 Hour Vital Signs Date Time Temp Pulse Resp B/P (MAP) Pulse Ox O2 Delivery O2 Flow Rate FiO2 06/14/18 20:00 98.4 82 18 126/70 (88) 95 06/14/18 16:00 99.2 82 20 117/62 (80) 94 06/14/18 12:00 98.8 79 20 123/67 (85) 96 06/14/18 09:06 78 135/80 06/14/18 09:00 78 135/80 (98) 06/14/18 09:00 Room Air 06/14/18 08:00 98.4 78 20 119/73 (88) 94 06/14/18 04:00 98.0 78 18 117/43 (67) 93 06/14/18 00:00 98.6 78 18 116/71 (86) 93 Intake and Output 06/13/18 06/14/18 19:00 07:00 Intake Total 780 ml Output Total 1200 ml 1000 ml Balance -420 ml -1000 ml Intake Oral 780 ml Output Urine Total 1200 ml 1000 ml # Bowel Movements 3 Height (Feet): 5 Height (Inches): 7.00 Weight (Pounds): 120 EENT: PERRL/EOMI Cardiovascular: regular rhythm Respiratory/Chest: lungs clear Abdomen: soft Néstor Marrero MD Jun 14, 2018 21:45
[2018-06-14] MEDS ORDERED: Morphine Sulfate 2mg/ml Inj(IV/IM USE ONLY) IVP PRN (23:45)
[2018-06-15] VITALS: BP 122/60
[2018-06-15 04:00] VITALS: BP 121/59
--- NOTE | 2018-06-15 07:30 | NUR ---
NURSE NOTES:RECEIVED REPORT FR.REBEKAH DILL.PATIENT IN BED A/OX4,ROOM AIR,IV SITE RFA PATENT.VALDEZ WITH GOOD OUTPUT,PAIN LEVEL 3/10,COMFORTABLE.AWAITING FOR BED IN [place],PATIENT AWARE.WILL CONTINUE PLAN OF CARE.
--- NOTE | 2018-06-15 07:30 | NUR ---
HAND-OFF: Report given to nurse Melisa solorzano.
--- NOTE | 2018-06-15 07:41 | General Progress Note ---
Assessment/Plan Assessment: (1) Lumbar Radiculopathy (2) Multilevel lumbar compression fx (3) Pelvic pain (4) Left iliac crest fx (5) Multiple Myeloma Pt will be continued on Liberty increased to 7.5/325mg PO 1 tab Q4H PRN and Morphine D/w Dr. Vu and he concurred. Subjective Date patient seen: Jun 15, 2018 Time patient seen: 07:00 Allergies: Coded Allergies: No Known Allergies (Unverified , 03/20/18) Subjective Constitutional: Reports: weakness HEENT: Reports: no symptoms Cardiovascular: Reports: no symptoms Respiratory: Reports: no symptoms Gastrointestinal/Abdominal: Reports: no symptoms Genitourinary: Reports: no symptoms Neurologic/Psychiatric: Reports: no symptoms Endocrine: Reports: no symptoms Hematologic/Lymphatic: Reports: no symptoms Subjective: Patient is in bed showing no signs of pain or distress at this time. Reports that her pain was severe over night not tolerated on the Liberty and was restarted back on the Morphine 2mg IV Q4H PRN. Objective Last 24 Hour Vital Signs Date Time Temp Pulse Resp B/P (MAP) Pulse Ox O2 Delivery O2 Flow Rate FiO2 06/15/18 07:30 Room Air 06/15/18 04:00 98.7 74 18 121/59 (79) 95 06/15/18 00:00 98.4 83 18 122/60 (80) 96 06/14/18 21:00 Room Air 06/14/18 20:00 98.4 82 18 126/70 (88) 95 06/14/18 16:00 99.2 82 20 117/62 (80) 94 06/14/18 12:00 98.8 79 20 123/67 (85) 96 06/14/18 09:06 78 135/80 06/14/18 09:00 78 135/80 (98) 06/14/18 09:00 Room Air 06/14/18 08:00 98.4 78 20 119/73 (88) 94 Intake and Output 06/14/18 06/15/18 19:00 07:00 Intake Total 600 ml Output Total 750 ml Balance 600 ml -750 ml Intake Oral 600 ml Output Urine Total 750 ml # Bowel Movements 1 Height (Feet): 5 Height (Inches): 7.00 Weight (Pounds): 120 Objective General Appearance: no apparent distress, alert EENT: PERRL/EOMI, normal ENT inspection Neck: non-tender, normal alignment Cardiovascular: normal rate, regular rhythm Respiratory/Chest: lungs clear, normal breath sounds Abdomen: non tender, soft Extremities: non-tender Edema: trace edema Neurologic: alert, oriented x 3 Skin: warm/dry Nils Bledsoe Jun 15, 2018 07:41
[2018-06-15 08:00] VITALS: BP 129/62
[2018-06-15] MEDS: Lactulose 20gm/30ml UDC ORAL SCH (08:19)
[2018-06-15] MEDS: Docusate 100mg cap ORAL SCH ×2 (08:19→13:00)
[2018-06-15] MEDS ORDERED: HYDROcodone/Acetamin 7.5/325 tab ORAL PRN (09:00)
[2018-06-15] MEDS ORDERED: Morphine Sulfate 2mg/ml Inj(IV/IM USE ONLY) IVP PRN (09:15)
--- NOTE | 2018-06-15 09:37 | Pulmonology Progress Note ---
Assessment/Plan Problems: (1) Multiple myeloma (2) Compression fx, lumbar spine (3) Closed pelvic fracture (4) Severe anemia (5) Monoclonal gammopathy Assessment/Plan pain is better controlled symptomatic treatment prbc transfusion if hem less than 7 f/u oncology recommendation dc planning Subjective ROS Limited/Unobtainable: No Constitutional: Reports: no symptoms HEENT: Repors: no symptoms Respiratory: Reports: no symptoms Allergies: Coded Allergies: No Known Allergies (Unverified , 03/20/18) Objective Last 24 Hour Vital Signs Date Time Temp Pulse Resp B/P (MAP) Pulse Ox O2 Delivery O2 Flow Rate FiO2 06/15/18 08:20 78 129/62 06/15/18 08:00 99.0 78 19 129/62 (84) 94 06/15/18 07:30 Room Air 06/15/18 04:00 98.7 74 18 121/59 (79) 95 06/15/18 00:00 98.4 83 18 122/60 (80) 96 06/14/18 21:00 Room Air 06/14/18 20:00 98.4 82 18 126/70 (88) 95 06/14/18 16:00 99.2 82 20 117/62 (80) 94 06/14/18 12:00 98.8 79 20 123/67 (85) 96 Intake and Output 06/14/18 06/15/18 19:00 07:00 Intake Total 600 ml Output Total 750 ml Balance 600 ml -750 ml Intake Oral 600 ml Output Urine Total 750 ml # Bowel Movements 1 Objective General Appearance: WD/WN Lines, tubes and drains: peripheral HEENT: normocephalic, atraumatic Respiratory/Chest: chest wall non-tender, lungs clear Breasts: no masses Cardiovascular/Chest: normal peripheral pulses Abdomen: normal bowel sounds Genitourinary/Rectal: normal genital exam Current Medications Medications (Trade) Dose Ordered Sig/Travis Route PRN Reason Start Time Stop Time Status Last Admin Dose Admin Acetaminophen (Tylenol) 650 mg Q4H PRN ORAL Mild Pain/Temp > 100.5 06/08/18 21:15 07/08/18 21:14 Acetaminophen/ Hydrocodone Bitart ([place] 7.5/325) 1 tab Q4H PRN ORAL severe pain 06/15/18 09:00 06/22/18 08:59 Docusate Sodium (Colace) 100 mg THREE TIMES A DAY ORAL 06/09/18 18:00 07/09/18 17:59 06/15/18 08:19 Lactulose (Cephulac) 30 gm DAILY ORAL 06/12/18 09:00 07/12/18 08:59 06/15/18 08:19 Morphine Sulfate (Morphine Sulfate) 2 mg Q4H PRN IVP Severe Pain (Pain Scale 7-10) 06/15/18 09:15 06/21/18 23:44 Nifedipine (Procardia XL) 30 mg DAILY ORAL 06/10/18 09:00 07/10/18 08:59 06/15/18 08:20 Sodium Phosphate (Fleet's Sodium Phosl Enema) 133 ml DAILY PRN RECTAL Constipation 06/12/18 19:15 07/12/18 19:14 Claudia Trinidad MD Jun 15, 2018 09:37
[2018-06-15] MEDS ORDERED: DOCUSATE SODIU100 MG ORAL (09:38)
[2018-06-15] MEDS ORDERED: HYDROCODON-ACE1 EA16 ORAL (09:39)
[2018-06-15] MEDS ORDERED: LACTULOSE20 GM/301 ORAL (09:40)
[2018-06-15] MEDS ORDERED: ACETAMINOPHEN325 M1 ORAL (09:43)
[2018-06-15] MEDS ORDERED: FLEET ENEMA133 M1 RC (09:44)
--- NOTE | 2018-06-15 10:21 | NUR ---
DISCHARGE PLAN PATIENT WILL DISCHARGE TO [facility] ROOM 12[address] SKILLED T: [phone] FOR NURSE TO NURSE CONVERSATION [facility] HAS BEEN ARRANGED FOR 1300 PICK PATIENT IS IN AGREEMENT WITH DISCHARGE PLAN
--- NOTE | 2018-06-15 10:50 | NUR ---
NURSE NOTES:REPORT GIVEN TO HAYLEY BRUNNER RE:TRANSFER REPORT TO [facility].PER PATIENT SHE INFORMED HER MOTHER FOR TRANSFER.
--- NOTE | 2018-06-15 11:00 | Nephrology Progress Note ---
Assessment/Plan Problem List: (1) Monoclonal gammopathy Assessment: MM (2) Compression fx, lumbar spine (3) Anemia Assessment: MM (4) Osteoporosis of disuse (5) Urinary outflow obstruction Assessment Anemia, suspected MM corrected for hypoalbuminemia, patient has hypercalcemia mild HTN Multiple vertebral compression fracture Profound osteoporosis. Right lower lobe pulmonary parenchymal consolidation or atelectasis. nondisplaced left anterior iliac bone fracture. urinary outlet obstruction fecal impaction Plan no labs [place] Colace anemia kim per ortho / Onco.... procardia for HTN SQ Heparin ? DC planning and OP fu Subjective ROS Limited/Unobtainable: No Constitutional: Reports: malaise Objective Objective Last 24 Hour Vital Signs Date Time Temp Pulse Resp B/P (MAP) Pulse Ox O2 Delivery O2 Flow Rate FiO2 06/15/18 08:20 78 129/62 06/15/18 08:00 99.0 78 19 129/62 (84) 94 06/15/18 07:30 Room Air 06/15/18 04:00 98.7 74 18 121/59 (79) 95 06/15/18 00:00 98.4 83 18 122/60 (80) 96 06/14/18 21:00 Room Air 06/14/18 20:00 98.4 82 18 126/70 (88) 95 06/14/18 16:00 99.2 82 20 117/62 (80) 94 06/14/18 12:00 98.8 79 20 123/67 (85) 96 Intake and Output 06/14/18 06/15/18 19:00 07:00 Intake Total 600 ml Output Total 750 ml Balance 600 ml -750 ml Intake Oral 600 ml Output Urine Total 750 ml # Bowel Movements 1 Height (Feet): 5 Height (Inches): 7.00 Weight (Pounds): 120 General Appearance: no apparent distress Objective no change Patrick Marino MD Jun 15, 2018 11:00
[2018-06-15 12:00] VITALS: BP 137/87
--- NOTE | 2018-06-15 12:59 | NUR ---
NURSE NOTES:REPORT GIVEN TO NEVIN([facility] TECH)RE:TRANSFER REPORT,PATIENT VOIDED,NO C/O PAIN ON REMELT FURNACE EXPEDITER.IV D/CD.DISCHARGE TO [facility] VIEW WITH BELONGINGS CONFIRMED WITH PATIENT
--- NOTE | 2018-06-15 15:43 | General Progress Note ---
Assessment/Plan Assessment: Assessment and Recs # Multiple myeloma, IgA subtype, donnie light chain restriction, versus other similar monolonal neoplasm such as waldenstroms she presents with back pain, as well as compression fractures, lesions in the cranium, which is new for the patient, iliac lesions, this is all potentially suacute to chronic. Fractures have been confirmed by Mri imaging --> Myeloma evaluation has been ordered and preliminary results shows HIGH iGA, hypercalcemia, bony lesions, however spep and upep to follow --> s/p bone marrow biopsy on 06/11/18 to help illucidate myeloma subtype, cytogenetics (gene mutations) which can potentially give us information in regards to prognosis --> If myleoma, patients given her performance status can do very well, average lifespan >5 years with potential treatment --> also consider hospice/palliative care for symptom management, appreciate recs # Anemia of chronic disease is very likely related to multiple myeloma --> Anemia workup has been ordered, rule out gi bleed, has been reviewed as well --> No evidence of hemolysis is noted, peripheral smear has been reviewed. --> Hgb goal >7. Transfuse prn. --> Epogen or iron at this time is not particularly indicated --> Medications have been reviewed --> evaluate with Gi team prn --> transfuse if hgb is < 7 (will trend CBC daily) # Leukopenia - could be related to myleoma --> hepatitis and hiv results are negative --> again can benefit at some point with a bone marrow biopsy # Fractures of her back and iliac wing, burst compression fracture of L5, anterior wedge compression fracture fracture of L3 and mild anterior wedge compression fracture of L1. s/p treatment with norco --> seen by orthopedics --> pain management recs appreciated # Mechanical trip and fall approximately one month ago. --> Patient denies hitting her head or having loss of consciousness. --> per ortho # Anxiety, generalized The timing of this note does not necessarily reflect the time of the patient was seen. Greatly appreciate consultation! Subjective Constitutional: Denies: no symptoms, chills, diaphoresis, fever, malaise, weakness, other HEENT: Denies: no symptoms, eye pain, blurred vision, tearing, double vision, ear pain, ear discharge, nose pain, nose congestion, throat pain, throat swelling, mouth pain, mouth swelling, other Respiratory: Denies: no symptoms, cough, orthopnea, shortness of breath, SOB with excertion, SOB at rest, sputum, stridor, wheezing, other Gastrointestinal/Abdominal: Denies: no symptoms, abdomen distended, abdominal pain, black stools, tarry stools, blood in stool, constipated, diarrhea, difficulty swallowing, nausea, poor appetite, poor fluid intake, rectal bleeding , vomiting, other Neurologic/Psychiatric: Denies: no symptoms, anxiety, depressed, emotional problems, headache, numbness, paresthesia, pre-existing deficit, seizure, tingling, tremors, weakness, other Endocrine: Denies: no symptoms, excessive sweating, flushing, intolerance to cold, intolerance to heat, increased hunger, increased thirst, increased urine, unexplained weight gain, unexplained weight loss, other Allergies: Coded Allergies: No Known Allergies (Unverified , 03/20/18) Subjective 06/10: no events, continues to be in pain, dw her she may need bone marrow biopsy , labs reviewed 06/11: s/p bone marrow biopsy, no fevers or chills, feelijng better, to get mri today 06/13: pain has somehwat improved, getting norco on prn basis, no fevers or chills reproted 06/14: feeling better, wants to be discharged and is stable for it, bmbx shows mm 06/11: no events to report, may be going to [facility] today, to come in this week office Objective Last 24 Hour Vital Signs Date Time Temp Pulse Resp B/P (MAP) Pulse Ox O2 Delivery O2 Flow Rate FiO2 06/15/18 12:00 97.7 83 19 137/87 (104) 96 06/15/18 08:20 78 129/62 06/15/18 08:00 99.0 78 19 129/62 (84) 94 06/15/18 07:30 Room Air 06/15/18 04:00 98.7 74 18 121/59 (79) 95 06/15/18 00:00 98.4 83 18 122/60 (80) 96 06/14/18 21:00 Room Air 06/14/18 20:00 98.4 82 18 126/70 (88) 95 06/14/18 16:00 99.2 82 20 117/62 (80) 94 Intake and Output 06/14/18 06/15/18 18:59 06:59 Intake Total 600 ml Output Total 750 ml Balance 600 ml -750 ml Intake Oral 600 ml Output Urine Total 750 ml # Bowel Movements 1 Height (Feet): 5 Height (Inches): 7.00 Weight (Pounds): 120 Objective PE: Vitals: reviewed General Appearance: NAD HEENT: normocephalic, atraumatic Neck: non-tender, normal alignment Respiratory/Chest: nromal breath sounds bilaterally Cardiovascular/Chest: normal peripheral pulses, normal rate Abdomen: normal bowel sounds, soft, nontender Extremities: normal range of motion Neuro: difficult to perform given leg pain, back pain Dmitriy Freed MD Jun 15, 2018 15:43
--- NOTE | 2018-06-17 10:26 | Discharge Summary ---
Discharge Summary Discharge Summary _ Discharge summary DATE OF ADMISSION: 06/08/2018 DATE OF DISCHARGE: 06/15/2018 DISCHARGED BY: Dr Marrero REASON FOR ADMISSION: 63 years old female with past medical history of depression presented to emergency room complaining of 10 out of 10 low back pain and rapid right upper hip pain. Patient reported mechanical trip and fall approximately 1 month ago. Patient denies hitting her head or having or loss of consciousness. She denies neck pain she had been ambulatory the whole time however the symptoms was getting progressively worse and pain was exacerbated upon walking and standing. Patient denies urinary incontinence or urinary retention. Patient denies paresthesia of the lower extremity or saddle anesthesia. Patient denied fever chills recent spinal surgery. No history of cancer. Upon evaluation vital signs revealed slightly elevated blood pressure 149/83 otherwise stable laboratory workup revealed no leukocytosis hemoglobin 9.6 hematocrit 29.6. Stable electrolytes and renal parameters glucose 98 stable LFT albumin 2.4 CT scan of lumbar spine revealed multiple vertebral compression fracture age undetermined. No acute bony trauma no other acute bony trauma demonstrated. Multilevel degenerative changes. Profound osteoporosis. Right lower lobe pulmonary parenchymal consolidation versus atelectasis. CT scan of pelvis demonstrated unusual nondisplaced left anterior iliac bone fracture. Profound bone demineralization.More focal lucencies as well as generalized heterogeneity to the bones could be just related to osteoporotic change, but raise concern for systemic pathologic process, either metabolic or neoplastic. In the emergency department patient received analgesia and admitted for further management to medical surgical floor. CONSULTANTS: pulmonary Dr. Trinidad ordnance artificer helper Dr. Marino human resource internship/oncologist Dr. Freed orthopedic surgery Dr. Kwok pain specialist Dr. Vu HOSPITAL COURSE: Patient admitted Pain management was addressed as per pain specialist recommendation. Orthopedic surgeon initially seen and evaluated patient. He recommended appropriate workup for possible multiply myeloma vs possible metastatic cancer. MRI of the lumbar spine was done to better evaluate the chronicity of the lumbar spine issues. MRI of lumbar spine revealed multiple vertebral body compression fracture deformities, as described corresponding to findings reported on recent CT scan. Diffuse marrow signal abnormality, as described. Most likely related to diffuse marrow infiltration, given recent clinical diagnosis of probable multiple myeloma. No definite findings to indicate acute marrow edema so compression fractures were presumably chronic, likely pathologic. Multiply degenerative changes Orthopedic surgeon cleared patient to be weightbearing status as tolerated. Bone density scan revealed profound osteoporosis. Multiple small subcentimeter lucencies within the pelvis, skull, and bilateral proximal femurs are concerning with bony involvement with process such as multiple myeloma. Manager Media/oncologist followed. Serum immunoglobulin immunofixation showed IgA monoclonal protein with lambda light chain specificity. Serum protein electrophoresis revealed abnormal bands Beta 3.6, Lambda 0.5. Patient subsequently undergone bone marrow aspiration and biopsy, which revealed plasma cell myeloma 90% involvement , moderate normocytic anemia , no evidence of dysplasia or increased blasts. Urine protein electrophoresis still pending. Cancer tumor markers, including CA-15-3, CA-19-9, CA 125 were all within normal limits. Hemoglobin and hematocrit were closely monitored. Anemia workup was consistent with anemia of chronic disease likely due to multiply myeloma. No evidence of hemolysis. Hemoglobin and hematocrit were closely monitored with goal to keep hemoglobin above 7. Epogen or iron at this time were not particularly indicated. Prior to discharge hemoglobin 9.5, hematocrit 29.6. Hepatitis panel was negative. HIV test was nonreactive. Patient will need to follow-up with human resource internship /oncologist as outpatient for multiply myeloma treatment. [place] Tanner followed. Blood pressure was managed with calcium channel steven and remained stable. DVT prophylaxis with heparin provided. Bowel regimen instituted. Renal parameters and electrolytes were closely monitored, electrolytes corrected as needed and nephrotoxins were avoided. Nutritional assessment revealed that patient was at moderate risk for malnutrition. Diet provided as per dietary record registered dietitian recommendation. He was working with physical therapist. Fall precaution maintained. Patient required placement to long-term facility for further rehabilitation. Patient will need PT and OT services. Patient will need outpatient follow-up with oncologist for treatment of multiple myeloma. FINAL DIAGNOSES: Multiple myeloma, IgA subtype, lambda light chain restriction Monoclonal gammopathy Status post bone marrow biopsy Anemia of chronic disease, likely due to multiply myeloma Multiply compression fracture lumbar spine, chronic, pathological Status post mechanical fall Closed pelvic fracture Profound osteoporosis Mild hypertension Urinary outlet obstruction Fecal impaction Weight loss , cachexia DISCHARGE MEDICATIONS: See Medication Reconciliation list. DISCHARGE INSTRUCTIONS: Patient was discharged to the long-term facility. Follow up with medical doctor at the facility. I have been assigned to dictate discharge summary for this account. I was not involved in the patient's management. Shital Lynch NP Jun 17, 2018 10:26
== END 2018-06-15 13:20 | DRG 543 ==
LOC: EDBD 14:40 → EMR 15:00 → 3E 18:29 → EDBEDREQ 19:06
PROC: 07DR3ZX Extraction of Iliac Bone Marrow, Percutaneous Approach, Diagnostic (ICD-10-PCS; principal; 2018-06-11)
DX: M48.56XA Collapsed vertebra, not elsewhere classified, lumbar region, initial encounter for fracture (principal); J98.11 Atelectasis; C90.00 Multiple myeloma not having achieved remission; R64 Cachexia; N13.9 Obstructive and reflux uropathy, unspecified; R09.02 Hypoxemia; D47.2 Monoclonal gammopathy; D63.8 Anemia in other chronic diseases classified elsewhere; Z91.81 History of falling; M84.454A Pathological fracture, pelvis, initial encounter for fracture; M80.80XA Other osteoporosis with current pathological fracture, unspecified site, initial encounter for fracture; I10 Essential (primary) hypertension; K56.41 Fecal impaction; M54.16 Radiculopathy, lumbar region; G89.29 Other chronic pain; R10.2 Pelvic and perineal pain; E88.09 Other disorders of plasma-protein metabolism, not elsewhere classified; E83.52 Hypercalcemia; F41.1 Generalized anxiety disorder; Z68.20 Body mass index [BMI] 20.0-20.9, adult; G89.4 Chronic pain syndrome
CPT/HCPCS: 36415; 72131; 72148; 72192; 77075; 80053; 80061; 82270; 82378; 82607; 82728; 82746; 82784; 82977; 83036; 83540; 83550; 83615; 83735; 84100; 84165; 84443; 84484; 84550; 85007; 85025; 85044; 85060; 85610; 85651; 85730; 86140; 86300; 86304; 86334; 86703; 86705; 86709; 86803; 86850; 86900; 86901; 86920; 87340; 96372; 99285

== ENCOUNTER 2019-07-05 09:48 | Outpatient (CLI) | payer MEDICARE, MEDICAID ==
[~2019-07-05 09:48] MED LIST changes: +ACETAMINOPHEN325 M1 ORAL; +ALPRAZOLAM1 MG ORAL; +DOCUSATE SODIU100 MG ORAL; +FLEET ENEMA133 M1 RC; +HYDROCODON-ACE1 EA16 ORAL; +IBUPROFEN600 MG ORAL; +LACTULOSE20 GM/301 ORAL; +NORCO 5-325 TA1 EACH ORAL; +PROCARDIA XL30 MG ORAL
--- NOTE | 2019-07-05 14:49 | Diagnostic Imaging Report ---
Indication: Pain Technique: Limited images of the axial and appendicular skeleton. Comparison: 06/09/2018 Findings: Bones demonstrate generalized osteoporosis, which somewhat complicates assessment for multiple myeloma. Discrete osteolytic lesions are seen in the mid shaft of the right humerus. This definitely represents progression of disease from the previous study. Osteolytic lesions are seen within the bilateral inferior pubic rami, appearance similar to the prior exam. There may be osteolytic lesions within the iliac bones, although this is difficult to assess due to overlying gas-filled bowel. Definite osteolytic lesions are seen in the bilateral femurs, more numerous on the left than on the right, the larger lesions on the left appearing slightly increased from the prior study.. Typical appearing osteolytic lesions are seen within the calvarium, extent similar to the previous exam. The cervical spine is very osteoporotic lesions. There are degenerative changes of the mid to lower cervical spine. The thoracic spine is very osteoporotic, demonstrates numerous compression fractures which appears slightly more extensive and severe than on the prior study, although comparison is difficult. Innumerable lumbar compression fractures appears similar to the prior exam. There is what appears to be an old healed fracture deformity of the right eighth rib. No definite osteolytic lesions are seen in the left humerus, the distal legs, or the forearms Impression: Multiple osteolytic lesions, as described, appearance characteristic of multiple myeloma deposits. There is slight progression of disease since the previous exam of 06/09/2018 within the left proximal femur and right humerus. Other findings are similar to the previous study Multiple thoracic and lumbar compression fractures. These may have progressed slightly within the thoracic spine
== END 2019-07-05 11:48 | disposition home or self-care (01) ==
LOC: RAD 09:48
DX: M81.0 Age-related osteoporosis without current pathological fracture (principal); C90.00 Multiple myeloma not having achieved remission; S22.009G Unspecified fracture of unspecified thoracic vertebra, subsequent encounter for fracture with delayed healing; S32.009G Unspecified fracture of unspecified lumbar vertebra, subsequent encounter for fracture with delayed healing; X58.XXXD Exposure to other specified factors, subsequent encounter
CPT/HCPCS: 77075

== ENCOUNTER 2019-07-27 11:11 | Emergency (ER) | payer MEDICARE, MEDICAID ==
[~2019-07-27] VITALS: Ht 170.2 cm; Wt 48.1 kg
[2019-07-27 11:19] VITALS: BP 148/81
--- NOTE | 2019-07-27 11:25 | NUR ---
ED Nurse Note: patient brought into ED with her wheelchair due to her right arm pain 10/10 since this morning. patient denies any injury, fall, or trauma. patient is alert awake x4 breathing unlabored and even.
[2019-07-27] MEDS ORDERED: Morphine Sulfate 2mg/ml Inj(IV/IM USE ONLY) IM ONE (11:45)
[2019-07-27 12:39] VITALS: BP 151/80
[2019-07-27] MEDS ORDERED: NORCO 5-325 TA1 EAC1 ORAL (12:50)
--- NOTE | 2019-07-27 13:18 | Emergency Room Report ---
History of Present Illness General Chief Complaint: Pain Source: Patient Present Illness [facility] [id number] female presents with right arm pain. Started this morning. Denies any fall or injury. Pain is dull, 9 out of 10, nonradiating. History of multiple myeloma. Currently receiving chemotherapy with Dr. Freed. No other aggravating relieving factors. Denies any other associated symptoms Allergies: Coded Allergies: No Known Allergies (Unverified , 03/20/18) COVID-19 Screening Contact w/high risk pt: No Recent Travel to affected area: No Experienced COVID-19 symptoms?: No COVID-19 Testing performed TANK REFINISHER: No Patient History Past Medical History: other - multiple myeloma Past Surgical History: none Pertinent Family History: none Social History: Denies: smoking, alcohol use, drug use Last Menstrual Period: na Now: No Immunizations: UTD Reviewed Nursing Documentation: PMH: Agreed; PSxH: Agreed Nursing Documentation-PMH Past Medical History: No History, Except For Hx Cardiac Problems: No - multiple myeloma Hx Gastrointestinal Problems: No Hx Neurological Problems: No Review of Systems All Other Systems: negative except mentioned in HPI Physical Exam Vital Signs Date Time Temp Pulse Resp B/P (MAP) Pulse Ox O2 Delivery O2 Flow Rate FiO2 07/27/19 11:19 98.1 80 20 148/81 (103) 97 Room Air Sp02 EP Interpretation: reviewed, normal General Appearance: no apparent distress, alert, GCS 15, non-toxic Head: normocephalic, atraumatic Eyes: bilateral eye normal inspection, bilateral eye PERRL ENT: hearing grossly normal, normal pharynx, no angioedema, normal voice Neck: full range of motion, supple/symm/no masses Respiratory: chest non-tender, lungs clear, normal breath sounds, speaking full sentences Cardiovascular #1: regular rate, rhythm, no edema Cardiovascular #2: 2+ carotid (R), 2+ carotid (L), 2+ radial (R), 2+ radial (L) , 2+ dorsalis pedis (R), 2+ dorsalis pedis (L) Gastrointestinal: normal bowel sounds, non tender, soft, non-distended, no guarding, no rebound Rectal: deferred Genitourinary: normal inspection, no CVA tenderness Musculoskeletal: back normal, decreased range of motion, gait/station normal, tender - R humerus Neurologic: alert, motor strength/tone normal, oriented x3, sensory intact, responsive, speech normal Psychiatric: judgement/insight normal, memory normal, mood/affect normal, no suicidal/homicidal ideation Reflexes: 3+ bicep (R), 3+ bicep (L), 3+ tricep (R), 3+ tricep (L), 3+ knee (R) , 3+ knee (L) Lymphatic: no adenopathy Procedures Splinting Splinting : Consent: Verbal Splint: coaptation Pre-Proc Neuro Vasc Exam: normal Post-Proc Neuro Vasc Exam: normal Patient Tolerated: Well Complications: None Medical Decision Making Diagnostic Impression: Primary Impression: Humerus fracture Qualified Codes: S42.301A - Unspecified fracture of shaft of humerus, right arm, initial encounter for closed fracture Additional Impression: Multiple myeloma Qualified Codes: C90.00 - Multiple myeloma not having achieved remission ER Course Hospital Course 64-year-old F presents to ED complaining of R arm pain Differential diagnoses include: Fracture, dislocation, sprain, contusion Clinical course Patient placed on stretcher. After initial history and physical, I ordered pain medications and Xrays of R humerus Xrays prelim read shows midshaft fx, with mild angulation I discussed findings with patient. I discussed findings with Ortho Dr. Kwok. He will see in his office tomorrow. Placed in coaptation splint. Discussed with Dr. Freed. Safe for discharge with close outpatient follow- up Diagnosis - humerus fx, multiple myeloma Stable and discharged to home with prescription for, [place]. apply ice, keep elevated. Followup with PMD/ortho. Return to ED if symptoms recur or worsen Other X-Ray Diagnostic Results Other X-Ray Diagnostic Results : X-Ray ordered: R humerus # of Views/Limited Vs Complete: 2 View Indication: Pain EP Interpretation: Yes Interpretation: no dislocation, no soft tissue swelling, other - midshaft humerus fx with mild angulation Impression: Other Electronically Signed by: Electronically signed by Dano Alvarado MD Last Vital Signs Date Time Temp Pulse Resp B/P (MAP) Pulse Ox O2 Delivery O2 Flow Rate FiO2 07/27/19 12:39 98.1 78 15 151/80 98 Room Air Status: improved Disposition: HOME, SELF-CARE Condition: Stable Scripts Hydrocodone Bit/Acetaminophen 5-325* (NORCO 5-325 TABLET*) 1 Each Tablet 1 TAB ORAL Q6H PRN for FOR PAIN, #10 TAB 0 Refills Prov: Dano Alvarado MD 07/27/19 Referrals: Dmitriy Freed MD NOT CHOSEN IPA/,REFERRING (PCP) Scout Kwok MD Patient Instructions: Humerus Fracture Treated With Immobilization, Easy-to- Read Additional Instructions: please see Dr Kwok in his office tomorrow (07/27). Dano Alvarado MD July 27, 2019 13:18
[2019-07-27 13:21] VITALS: BP 151/80
--- NOTE | 2019-07-27 13:22 | NUR ---
ER DISCHARGE NOTE: Patient is cleared to be discharged per ERMD DR Alvarado, pt is aox4, on room air, with stable vital signs. pt was given dc and prescription instructions, pt was able to verbalize understanding, pt id band removed without complications. patient applied with splint as ordered by pt discharged with her wheelchair.
--- NOTE | 2019-07-27 17:55 | Diagnostic Imaging Report ---
Indications: Right arm pain, trauma Technique: Two views of the right humerus Comparison: None Findings: There is an angulated fracture of the midshaft humerus. There is an osteolytic lesion with a a so-called moth-eaten appearance at the fracture site. There is also a similar appearance to the bone in the humeral head. Impression: Positive for midshaft humeral fracture, presumably at pathologic fracture in a patient with known history of multiple myeloma
== END 2019-07-27 13:25 | disposition home or self-care (01) ==
LOC: EMR 11:50
DX: S42.301A Unspecified fracture of shaft of humerus, right arm, initial encounter for closed fracture (principal); C90.00 Multiple myeloma not having achieved remission; X58.XXXA Exposure to other specified factors, initial encounter; Y92.9 Unspecified place or not applicable
CPT/HCPCS: 29105; 73060; 96372; 99283; J2270